=== PATIENT | female | born 1970 | race African-American/Black ===

== ENCOUNTER 2016-11-17 11:59 | Inpatient (IN) ==
[2016-11-17] MEDS ORDERED: DUONEB (A & A) INH ONE (12:23)
--- NOTE | 2016-11-17 12:32 | PROVIDER DOCUMENTATION ---
HPI-Respiratory General - General Chief Complaint: Shortness of Breath Stated Complaint: sob Time Seen by Provider: 11/17/16 12:17 Source: patient Allergies/Adverse Reactions: Patient Allergies Allergy/AdvReac Type Severity Reaction Status Date / Time amoxicillin [Amoxicillin] Allergy Severe RASH Verified 11/17/16 12:10 Home Medications: Home Medication List Medication Instructions Recorded Confirmed Last Taken Type Amlodipine [Norvasc] 10 mg PO DAILY 08/18/15 11/17/16 11/17/16 History Furosemide [Lasix] 40 mg PO DAILY 08/18/15 11/17/16 11/17/16 History Albuterol Sulfate [Proventil Hfa] 6.7 gm IH DIRECTED 11/03/15 11/17/16 History Potassium Chloride 10 meq PO BID 03/05/16 11/17/16 11/17/16 History Metformin [Glucophage] 1 tab PO DAILY 10/20/16 11/17/16 11/16/16 History - History of Present Illness-Resp Nature of Presenting Problem: SOB and Wheezing for 3-4 days. Occ prod cough. No fever, no CP, no palpitations. No N/V. Has bee using albuterol @ home. 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 denies: chest pain /soreness, heart racing Similar Symptoms Previously?: Yes Recently seen or treated by another doctor?: No Review of Systems - Adult - REVIEW OF SYSTEMS - ADULT Constitutional: reports: no symptoms reported Eyes: reports: no symptoms reported Ears, Nose, Mouth & Throat: reports: no symptoms reported Cardiovascular: reports: no symptoms reported Respiratory: reports: see HPI Gastrointestinal: reports: see HPI Genitourinary: reports: no symptoms reported Musculoskeletal: reports: no symptoms reported Integumentary: reports: no symptoms reported Neurological: reports: no symptoms reported Psychiatric: reports: no symptoms reported Endocrine: reports: no symptoms reported Hematologic/Lymphatic: reports: no symptoms reported Allergic/Immunologic: reports: no symptoms reported Past History - Adult - PAST MEDICAL HISTORY-ADULT Review of Records: reports: Medications Reviewed Major Childhood Illnesses: reports: denies history Cardiovascular: reports: CHF, HTN, hyperlipidemia Respiratory: reports: asthma, sleep apnea Gastrointestinal: reports: denies history Obstetrical/Gynecological: reports: denies history Genitourinary: reports: denies history Musculoskeletal: reports: chronic pain Neurological: reports: denies history Psychiatric: reports: anxiety Endocrine/Immune: reports: denies history Other Conditions: reports: denies history - PRIOR SURGERIES/PROCEDURES Surgical/Procedure History: reports: none - IMMUNIZATION STATUS Childhood Immunizations: See Nurse Assessment Flu Vaccine: See Nurse Assessment - FAMILY HISTORY Family History: reviewed, not pertinent - SOCIAL HISTORY Smoking: denies Physical Exam-General - PHYSICAL EXAM-ADULT Initial Vital Signs Reviewed: Yes - CONSTITUTIONAL General Appearance: appears well, alert, no apparent distress - EYES Eyes: PERRL/EOMI, pink conjunctivae - HEAD, EARS, NOSE, MOUTH & THROAT HENMT: normocephalic/atraumatic, moist mucous membranes, normal ENT inspection, pharynx normal - NECK Neck: full range of motion, supple - RESPIRATORY Respiratory: lungs clear, decreased breath sounds, accessory muscle use - CARDIOVASCULAR Cardiovascular: regular rate, rhythm, no gallop, other (1+ pretibial edema- pt says is no worse than usual) - GASTROINTESTINAL (ABDOMEN) Abdominal Exam: non tender, soft - MUSCULOSKELETAL Back Exam: no CVA tenderness, no vertebral tenderness Extremity: normal range of motion, non-tender - SKIN Integumentary: normal color, normal turgor, warm/dry - NEUROLOGIC Neurologic: cna II-XII nml as tested, grossly normal, no motor/sensory deficits - PSYCHIATRIC Psych/Mental Status: normal mood/affect, normal thought content, normal thought process, oriented x 3 Progress - PLAN OF CARE/RESULTS Progress/Plan/Lab Results: Vital Signs - 8 hr 11/17/16 12:02 11/17/16 12:05 11/17/16 12:51 Temperature 98.4 F Pulse Rate 114 H 102 H 106 H Respiratory Rate 25 H 22 22 Blood Pressure 141/81 O2 Sat by Pulse Oximetry 76 L 93 L 95 Laboratory Results - last 24 hr 11/17/16 11/17/16 11/17/16 12:12 12:12 12:12 WBC 3.72 L RBC 5.01 Hgb 12.9 Hct 43.6 MCV 87.0 MCH 25.7 L MCHC 29.6 L RDW Std Deviation 17.5 H Plt Count 253 MPV 11.2 H Immature Gran % (Auto) 0.0 Neut % (Auto) 63.1 Lymph % (Auto) 19.1 L [place] % (Auto) 16.7 H Eos % (Auto) 0.8 Baso % (Auto) 0.3 Immature Gran # (Auto) 0.00 Neut # (Auto) 2.35 Lymph # (Auto) 0.71 L [place] # (Auto) 0.62 H Eos # (Auto) 0.03 Baso # (Auto) 0.01 D-Dimer Specimen Type Sample Site pH pCO2 pO2 HCO3 Base Excess Oxyhemoglobin ABG O2 Sat (Calculated) ABG O2 Saturation ABG Carboxyhemoglobin ABG Methemoglobin Erik Test A-a O2 Difference Total Hemoglobin Lactate Blood Gas Modality FiO2 % Sodium 138 Potassium 4.6 Chloride 97 L Carbon Dioxide 31 Anion Gap 10 BUN 12 Creatinine 0.7 Estimated GFR/1.73 m2 > 60 BUN/Creatinine Ratio 17 Glucose 91 Calculated Osmolality 275 Calcium 8.7 L Total Bilirubin 0.48 AST 17 ALT 26 Alkaline Phosphatase 120 H Fkv-A-Amvihglkoro Pept 226 H Total Protein 8.1 Albumin 3.8 Globulin 4.3 Albumin/Globulin Ratio 0.9 Plasma Lactate Serum , Qual Urine Source 11/17/16 11/17/16 11/17/16 12:12 12:12 12:15 WBC RBC Hgb Hct MCV MCH MCHC RDW Std Deviation Plt Count MPV Immature Gran % (Auto) Neut % (Auto) Lymph % (Auto) [place] % (Auto) Eos % (Auto) Baso % (Auto) Immature Gran # (Auto) Neut # (Auto) Lymph # (Auto) [place] # (Auto) Eos # (Auto) Baso # (Auto) D-Dimer 0.98 H Specimen Type Sample Site pH pCO2 pO2 HCO3 Base Excess Oxyhemoglobin ABG O2 Sat (Calculated) ABG O2 Saturation ABG Carboxyhemoglobin ABG Methemoglobin Erik Test A-a O2 Difference Total Hemoglobin Lactate Blood Gas Modality FiO2 % Sodium Potassium Chloride Carbon Dioxide Anion Gap BUN Creatinine Estimated GFR/1.73 m2 BUN/Creatinine Ratio Glucose Calculated Osmolality Calcium Total Bilirubin AST ALT Alkaline Phosphatase Tbv-B-Qmewkugzylj Pept Total Protein Albumin Globulin Albumin/Globulin Ratio Plasma Lactate 1.6 Serum , Qual NEGATIVE Urine Source 11/17/16 11/17/16 15:20 15:47 WBC RBC Hgb Hct MCV MCH MCHC RDW Std Deviation Plt Count MPV Immature Gran % (Auto) Neut % (Auto) Lymph % (Auto) [place] % (Auto) Eos % (Auto) Baso % (Auto) Immature Gran # (Auto) Neut # (Auto) Lymph # (Auto) [place] # (Auto) Eos # (Auto) Baso # (Auto) D-Dimer Specimen Type ARTERIAL Sample Site R RADIAL pH 7.39 pCO2 66 H* pO2 66 HCO3 34.3 H Base Excess 12.2 H Oxyhemoglobin 91.9 L ABG O2 Sat (Calculated) 16.9 ABG O2 Saturation 93.9 L ABG Carboxyhemoglobin 1.70 ABG Methemoglobin 0.5 Erik Test YES A-a O2 Difference 108.0 Total Hemoglobin 13.1 Lactate 0.60 Blood Gas Modality CANNULA FiO2 % 36.0 Sodium Potassium Chloride Carbon Dioxide Anion Gap BUN Creatinine Estimated GFR/1.73 m2 BUN/Creatinine Ratio Glucose Calculated Osmolality Calcium Total Bilirubin AST ALT Alkaline Phosphatase Qqg-V-Uqcquvkpgnj Pept Total Protein Albumin Globulin Albumin/Globulin Ratio Plasma Lactate Serum , Qual Urine Source CLEAN CATCH Orders Category Date Time Status CHEST-2 VIEWS [RAD] Stat Exams 11/17/16 12:24 Completed ABG [RESP] Routine Lab 11/17/16 15:20 Completed CBC WITH DIFF [HEME] Stat Lab 11/17/16 12:12 Completed COMPREHENSIVE METABOLIC PANEL [CHEM] Stat Lab 11/17/16 12:12 Completed D-DIMER [CHEM] Stat Lab 11/17/16 12:12 Completed LACTATE, PLASMA [CHEM] Stat Lab 11/17/16 12:15 Completed TEST-SERUM [PREG] Stat Lab 11/17/16 12:12 Completed PRO B-NATRIURETIC PEPTIDE Stat Lab 11/17/16 12:12 Completed URINALYSIS W/POSS RFLX CULT [URINALYSIS] Stat Lab 11/17/16 15:47 Results Albuterol 2.5MG/Ipratrop 0.5MG [Duoneb (A & A)] Med 11/17/16 12:23 Discontinued 3 ml INH NOW ONE Methylprednisolone Sod Succ [Solu-Medrol] Med 11/17/16 14:58 Discontinued 125 mg IV NOW ONE Aerosol Treatments Routine Oth 11/17/16 12:23 Completed Aerosol Treatments Stat Oth 11/17/16 12:23 Completed EKG [EKG] Stat Ther 11/17/16 12:24 Ordered Transfer/Admit Order [TRANSFER] Routine Transfer 11/17/16 15:58 Ordered Result Diagrams: 11/17/16 12:12 11/17/16 12:12 - REASSESSMENT Reassessment #1 Time Reassessed: 14:49 (feels some better after neb. BS still decreased. Says feels like is still wheezing) Status: improving - EKG 1 Time of EKG reading by physician:: 12:08 EKG Read and Signed by:: Zen Hearn EKG Interpretation (*Must complete 3 of following elements*): Abnormal Rate: 101 Rhythm: sinus tach [place]: normal QRS: poor R wave progression - XRAY 1 XRAY Study: Chest (cardiomegaly with central vasc prominence, suspected infilt R base) - CONSULTS/PCP/HOSPITALIST Notification #1 *Consult/PCP/Hospitalist*: [place] Time Discussed: 14:57 Consult Disposition: Admit Departure - Departure Time of Disposition Decision: 14:57 DIAGNOSIS: Asthma exacerbation CHF (congestive heart failure) Qualifiers: Congestive heart failure type: unspecified congestive heart failure type Congestive heart failure chronicity: acute Qualified Code(s): I50.9 - Heart failure, unspecified Disposition: ADMITTED INPATIENT 09 Certified Medical Emergency: Emergent Condition: Stable Referrals and Follow-Ups: Desmond Mcqueen [Primary Care Provider] - - Critical Care Note This patient required my direct & personal management of CC.: No
[2016-11-17 12:34] LABS: MANUAL DIFF NEEDED? NO
[2016-11-17 12:36] LABS: BASO% 0.3 % (0.0-0.8); EOS# 0.03 X1000 (0.0-0.7); EOS% 0.8 % (0.0-10.0); HEMATOCRIT 43.6 % (37.0-47.0); HEMOGLOBIN 12.9 g/dL (12.0-16.0); LYMPH# 0.71 X1000 (1.2-3.4); LYMPH% 19.1 % (20.5-51.1); MCH 25.7 PG (27-31); MCHC 29.6 g/dL (33-37); MONO# 0.62 X1000 (0.11-0.59); MONO% 16.7 % (1.7-9.3); MPV 11.2 FL (7.4-10.4); NEUT% 63.1 % (42.2-75.2); PLT 253 X1000 (130-400); RBC 5.01 XMIL (4.2-5.4)
[2016-11-17 12:57] LABS: AGAP 10; ALBUMIN 3.8 g/dL (3.5-5.0); ALKALINE PHOSPHATASE 120 U/L (32-104); BUN 12 mg/dL (8-22); CALCIUM 8.7 mg/dL (8.8-10.2); CHLORIDE 97 mmol/L (98-107); COSMO 275; GOT 17 U/L (10-30); GPT 26 U/L (10-36); POTASSIUM 4.6 mmol/L (3.5-5.1); SODIUM 138 mmol/L (136-145); TCO2 31 mmol/L (25-35); TOTAL BILIRUBIN 0.48 mg/dL (0.20-1.00); TOTAL PROTEIN 8.1 g/dL (6.3-8.3)
--- NOTE | 2016-11-17 13:56 | Diag Imaging Result Doc PS360 ---
EXAM: CHEST-2 VIEWS HISTORY: SOB TECHNIQUE: COMPARISON: 04/13/2016 FINDINGS: The lungs are well expanded. The heart is mildly enlarged. The central vascular prominence. No consolidation. The heart infiltrates in the right base. No pleural effusions. IMPRESSION: 1.Cardiomegaly with central vascular prominence 2.Suspected infiltrate in the right base. Follow-up films recommended. Electronically signed by Curtis Garvey 11/17/2016 1:54 PM
[2016-11-17] MEDS ORDERED: SOLU-MEDROL IV ONE (14:58)
[2016-11-17 15:33] LABS: ALLEN TEST YES; BE 12.2 mmoll (-3.0-3.0); BLOOD TYPE ARTERIAL; DRAW SITE R RADIAL; METHB 0.5 % (0.0-1.5); O2(CT) 16.9 mL/dL (15.0-23.0); PO2(98.6) 66 mmHg (60-100); SAMPLE BLOOD; SAO2 93.9 % (95.0-100.0); THB 13.1 g/dL (11.5-17.4); pH(98.6) 7.39 (7.35-7.45)
[2016-11-17 15:37] LABS: MODALITY CANNULA; PCO2(98.6) 66 mmHg (35-45)
[2016-11-17 15:58] LABS: URINE CULTURE NEEDED? NO; URINE MICRO REVIEW NEEDED? NO; URINE SOURCE CLEAN CATCH
[2016-11-17 16:19] LABS: BILIRUBIN URINE NEGATIVE (NEGATIVE); BLOOD URINE NEGATIVE (NEGATIVE); COLOR STRAW; GLUCOSE URINE NEGATIVE (NEGATIVE); LEUKOCYTES URINE NEGATIVE (NEGATIVE); NITRITE URINE NEGATIVE (NEGATIVE); PROTEIN URINE NEGATIVE (NEGATIVE); SP GRAVITY URINE 1.008; TURBIDITY URINE CLEAR (CLEAR); UROBILINOGEN URINE NORMAL (NORMAL)
[2016-11-17 16:20] LABS: UR EPITHELIAL CELLS <10 /HPF (<10); URINE BACTERIA NEGATIVE /HPF; URINE RBC <10 /HPF (<10); URINE WBC <10 /HPF (<10)
--- NOTE | 2016-11-17 17:06 | HISTORY AND PHYSICAL ---
PRIMARY CARE PROVIDER: Dr. Desmond Mcqueen. CHIEF COMPLAINT: Wheezing. HISTORY OF PRESENT ILLNESS: Ms. Sherwood is a 46-year-old morbidly obese female with a history of asthma, COPD, hypertension, chronic systolic heart failure, obstructive sleep apnea who apparently states that when the weather gets worse or at night her wheezing gets worse. She has been having some shortness of breath with increased wheezing over the last 2 days. She states that her cough is nonproductive, but when she takes a breathing treatment at home she can cough up light yellow to white phlegm. She denies any type of fever and she states that she has been wearing her home O2 which is 3 L nasal cannula as needed and every night. She states that it got worse through the night and she decided to come in and seek medical advice. Her chest x-ray showed that she had a right lower lobe infiltrate. Her CO2 with her ABGs were 66, which appears to be around her baseline. Her PO2 is 66. Looking over the last year, her CO2 has ranged anywhere from as low at 59 to as high as 94. She states that she is supposed to wear CPAP at night, but has been unable to obtain equipment for this. We will go ahead and admit, start her on antibiotic treatment nebulizers. PAST MEDICAL HISTORY: 1. GERD. 2. Hiatal hernia. 3. Asthma, now with COPD, wearing 3 L nasal cannula p.r.n. oxygen at home. 4. Hypertension. 5. Chronic systolic congestive heart failure. 6. Hyperlipidemia. 7. Obstructive sleep apnea, but only wears night nasal cannula secondary to unable to obtain her CPAP machine. 8. Anxiety. 9. Diabetes type 2. 10. Morbidly obese. SURGICAL HISTORY: None. FAMILY HISTORY: Mother has heart disease and father has diabetes type 2. SOCIAL HISTORY: Denies tobacco, alcohol or illicit drug use. She states that she does on occasion drink alcohol, but it is very rare. She lives at home with her brother and cousin and has no issues with ambulation. ALLERGIES: Amoxicillin. HOME MEDICATIONS: Albuterol sulfate 6.7, inhaled as needed. Norvasc 10 mg p.o. daily. Lasix 40 mg p.o. daily. Glucophage 500 mg p.o. daily. Potassium chloride 10 mEq p.o. twice daily. REVIEW OF SYSTEMS: Fourteen point review of systems were complete and all were negative except for those mentioned above HPI. PHYSICAL EXAMINATION: VITAL SIGNS: Temperature is 98.4 degrees, heart rate 106, respiratory 22, blood pressure 141/81, O2 saturation 95% on 3 L nasal cannula on room air. When tested she was 83-84% . With her nasal cannula she was 92-96%. She is 5 feet 3 inches tall, 480 pounds with a BMI of 85. GENERAL: Ms. Jane Sherwood is a 46-year-old female. She is in no acute distress. She is able answer all questions appropriately. HEENT: Atraumatic, normocephalic. Pupils equal, round, reactive to light. Extraocular movements are intact. NECK: Unable to assess for JVD given body habitus. Negative for carotid bruits. CARDIOVASCULAR: S1, S2. Tachycardic rate and rhythm. No rubs, gallops, murmurs. PULMONARY: Mild expiratory wheezes noted anteriorly and posteriorly. No accessory muscle use or work of breathing noted at this time. Currently on 3 L nasal cannula. GI: Soft, nontender, morbidly obese, positive bowel sounds x4. EXTREMITIES: +1 pitting edema lower extremities, +2 dorsalis and radial pulses. NEUROLOGIC: Alert and oriented x4. Moves all extremities equally. LABORATORY DATA: White blood cells 3000, hemoglobin 12, hematocrit 43, platelet count 253,000. D- dimer 0.98. Arterial blood gases: PH 7.39, pCO2 66, PO2 66, bicarb 34, saturation 91, lactate 0.6 and this is on 3 L nasal cannula. Sodium is 138, potassium 4.6, BUN 12, creatinine 0.7, glucose 91, calcium 8.7, total bilirubin 0.48, AST 17, ALT 26, proBNP 226. Albumin 3.8, serum lactate 1.6. negative. Urinalysis negative. IMAGING: Chest x-ray: Cardiomegaly with central vascular prominence and suspected infiltrate in the right base of the lung. ASSESSMENT AND PLAN: 1. Chronic obstructive pulmonary disease, asthma exacerbation. Mild. We will do intravenous steroids, inhalers and pulmonary toilet. 2. Community-acquired pneumonia of the right lower lobe. We will do Levaquin for now. 3. Gastroesophageal reflux disease. Continue with proton pump inhibitor. 4. Hiatal hernia noted. 5. Hypertension. Continue home medications. 6. Chronic systolic congestive heart failure. No acute exacerbation at this time. Continue with home Lasix. 7. Obstructive sleep apnea. Does not wear CPAP at home secondary to unable to obtain a CPAP machine. 8. Diabetes type 2. Sliding scale insulin. Pattern blood glucoses. 9. Deep venous thrombosis prophylaxis. Lovenox. 10. Gastrointestinal prophylaxis. Proton pump inhibitor. Dictated by FREDY Guy for Gordo Georges MD cc: FREDY Guy MD Joel Alonzo Powell, Jr, MD I have seen and examined the patient and agrees with the above. Patient with OHS and severe obstructive sleep apnea Patient is has not been approved the CPAP. We will discuss this with her Package Wrapper and the case management. BEATRIZ
[2016-11-17] MEDS ORDERED: TYLENOL PO PRN (17:53)
[2016-11-17] MEDS: HUMULIN R SUBQ SCH ×2 (19:04→21:53)
[2016-11-17] MEDS: XOPENEX NEB INH SCH ×2 (19:15→23:40)
[2016-11-17] MEDS: PULMICORT INH SCH (19:15)
[2016-11-17] MEDS: ATROVENT NEB INH SCH ×2 (19:15→23:40)
[2016-11-17] MEDS: MUCOMYST 20% INH SCH (19:15)
[2016-11-17] MEDS: KLOR-CON PO SCH (21:53)
[2016-11-17] MEDS: LEVAQUIN 750 MG in NS 150 ML IV SCH (21:53)
[2016-11-17] MEDS: SOLU-MEDROL IV SCH (21:53)
[2016-11-18] MEDS: SOLU-MEDROL IV SCH ×4 (03:21→20:36)
[2016-11-18] MEDS: XOPENEX NEB INH SCH ×6 (03:35→23:10)
[2016-11-18] MEDS: ATROVENT NEB INH SCH ×6 (03:35→23:10)
--- NOTE | 2016-11-18 05:37 | EKG Report ---
Test Performed on : 11/17/2016 12:06:09 PM Test Reason : Blood Pressure : / mmHG Vent. Rate : 101 BPM Atrial Rate : 101 BPM P-R Int : 146 ms QRS Dur : 080 ms QT Int : 350 ms P-R-T Axes : 057 071 054 degrees QTc Int : 453 ms Sinus tachycardia. Cannot rule out Anterior infarct , age undetermined Abnormal ECG When compared with ECG of 11-APR-2016 12:28, No significant change was found Unconfirmed Result
[2016-11-18] MEDS: HUMULIN R SUBQ SCH ×4 (06:19→20:36)
[2016-11-18 06:50] LABS: BASO% 0.3 % (0.0-0.8); HEMATOCRIT 44.7 % (37.0-47.0); HEMOGLOBIN 13.4 g/dL (12.0-16.0); LYMPH# 0.36 X1000 (1.2-3.4); LYMPH% 9.6 % (20.5-51.1); MANUAL DIFF NEEDED? YES; MCH 25.7 PG (27-31); MCV 85.6 FL (81-99); MONO# 0.05 X1000 (0.11-0.59); MONO% 1.3 % (1.7-9.3); MPV 11.1 FL (7.4-10.4); NEUT% 88.8 % (42.2-75.2); PLT 276 X1000 (130-400); RBC 5.22 XMIL (4.2-5.4)
[2016-11-18 07:17] LABS: AGAP 10; ALBUMIN 3.7 g/dL (3.5-5.0); ALKALINE PHOSPHATASE 120 U/L (32-104); BUN 15 mg/dL (8-22); CALCIUM 9.2 mg/dL (8.8-10.2); CHLORIDE 97 mmol/L (98-107); COSMO 282; GOT 15 U/L (10-30); GPT 23 U/L (10-36); POTASSIUM 5.1 mmol/L (3.5-5.1); SODIUM 139 mmol/L (136-145); TCO2 32 mmol/L (25-35); TOTAL BILIRUBIN 0.35 mg/dL (0.20-1.00); TOTAL PROTEIN 8.2 g/dL (6.3-8.3)
[2016-11-18 07:22] LABS: LYMPHS 12 % (21-51); MONO 5 % (1-9)
[2016-11-18] MEDS: MUCOMYST 20% INH SCH ×2 (08:07→19:15)
[2016-11-18] MEDS: PULMICORT INH SCH ×2 (08:08→19:15)
[2016-11-18] MEDS: KLOR-CON PO SCH ×2 (09:33→20:36)
[2016-11-18] MEDS: NORVASC PO SCH (09:33)
[2016-11-18] MEDS: LASIX PO SCH (09:33)
[2016-11-18] MEDS: LOVENOX SUBQ SCH (09:34)
[2016-11-18] MEDS: MUCINEX PO SCH ×2 (11:27→20:36)
--- NOTE | 2016-11-18 16:36 | PROGRESS NOTE ---
DATE: 11/18/2016 SUBJECTIVE: Today Ms. Sherwood refers to be doing a lot better. Continues to have some residual cough, but no expectoration. OBJECTIVE: Vital signs: Blood pressure is 137/77, pulse of 94, respirations 20 , temperature is 98.7 degrees. General: Ms. Sherwood is a 46-year-old female, morbidly obese, BMI is over 85. She is in bed and did not seem to be in any distress. HEENT: Mucosa is pink and moist. Anicteric. Acyanotic. Neck: Supple. Chest: Air entry is bilaterally reduced. I did not appreciate any crepitations. There is some faint expiratory wheezing. Cardiovascular: Regular rate and rhythm. Abdomen: Soft, distended, but nontender. Extremities : No pedal edema. Patient does have excess subcutaneous tissue. LABORATORY DATA: WBC is 3.75, hemoglobin is 13.4, platelet count of 275,000. Chemistries reviewed. Completely unremarkable except for bicarb of 332. IMAGING: A chest x-ray which was done on presentation showed cardiomegaly with central vascular prominence. Suspected infiltrate in the right base. CURRENT MEDICATIONS: 1. Amlodipine 10 mg daily. 2. Budesonide inhaler. 3. Lovenox. 4. Lasix 40 mg daily. 5. Guaifenesin. 6. Levofloxacin 750. 7. Prednisone. 8. Potassium chloride ASSESSMENT: 1. Acute on chronic hypercarbic respiratory failure. 2. Obstructive sleep apnea. 3. Obesity hypoventilation syndrome. 4. Congestive heart failure, likely diastolic dysfunction. 5. Severe morbid obesity with body mass index of 85. PLAN: 1. In general, I think Ms. Sherwood is gradually getting better. We spoke extensively about her at [facility] and the fact that she keeps coming in and out and the ability for her to get a CPAP for her sleep apnea. The social welfare research worker and case management are looking into that. 2. I was also able to talk to her belt molder, Dr. Purvis, and he will also be looking into that issue of her CPAP. 3. Clinical standpoint, I think by tomorrow if her coughing is a whole lot better, we might be able to discharge her. cc: Gordo Georges MD [facility]
[2016-11-18] MEDS: LEVAQUIN 750 MG in NS 150 ML IV SCH (20:37)
[2016-11-19] MEDS: SOLU-MEDROL IV SCH ×2 (03:08→09:58)
[2016-11-19] MEDS: ATROVENT NEB INH SCH ×2 (03:25→08:05)
[2016-11-19] MEDS: XOPENEX NEB INH SCH ×2 (03:25→08:05)
[2016-11-19] MEDS: HUMULIN R SUBQ SCH ×3 (06:24→16:12)
[2016-11-19] MEDS: PULMICORT INH SCH (08:05)
[2016-11-19] MEDS: MUCOMYST 20% INH SCH (08:05)
--- NOTE | 2016-11-19 08:55 | CONSULTATION ---
DATE OF CONSULTATION: 11/19/2016 REFERRING PHYSICIAN: Dr. Georges. CHIEF COMPLAINT: Shortness of breath. HISTORY OF PRESENT ILLNESS: This is a 46-year-old female with a past medical history of GERD, asthma, hypertension, CHF, hyperlipidemia, STONEY, anxiety, diabetes, and morbid obesity, who presented to the hospital with complaints of shortness of breath and wheezing. She was admitted to the floor for closer evaluation. She does appear to be moderately better at this time. REVIEW OF SYSTEMS: A 10-point review of systems was conducted, pertinent as noted in the HPI, otherwise noncontributory. PAST MEDICAL HISTORY: As mentioned in the HPI, otherwise noncontributory. PAST SURGICAL HISTORY: Denies. FAMILY HISTORY: Notable for heart disease and diabetes. SOCIAL HISTORY: The patient denies the use of tobacco or illicit drugs. Has an occasional drink of alcohol. Lives at home with family. ALLERGIES: Amoxicillin. ACTIVE MEDICATIONS: Tylenol, Mucomyst, Norvasc, Pulmicort, Lovenox, Lasix, Mucinex, Humulin R, Atrovent, Xopenex, Solu-Medrol, Levaquin, Klor-Con. PHYSICAL EXAMINATION: Vital Signs: Temperature 97.5 degrees, heart rate 104, respiratory rate 16, blood pressure 144/91, oxygen saturation 94%. General: Awake, alert, sitting up in bed. No acute distress noted. HEENT: Normocephalic, atraumatic. PERRL. Cardiovascular: S1, S2 present. Chest: Reduced entry with some mild expiratory wheezes. Abdomen: Protuberant abdomen. Bowel sounds present in all quadrants. Extremities: There is +1 pedal edema. Neurologic: Alert and oriented x4. No focal deficits. IMAGING: Chest x-ray performed on 11/17/2016 shows cardiomegaly with central vascular prominence and suspected infiltrate in the right base. ASSESSMENT AND PLAN: This is a 46-year-old female with past medical history as mentioned in the history of present illness, who was admitted for evaluation of her chronic obstructive pulmonary disease exacerbation secondary to asthma. She did receive inhaled bronchodilators, intravenous steroids, broad-spectrum antibiotics for suspected community-acquired pneumonia. Will follow up outpatient for continuous positive airway pressure setup. Diabetes is controlled with pattern fingersticks and sliding scale insulin, as well as deep venous thrombosis and gastrointestinal prophylaxis. Further recommendations pending diagnostic studies. STONEY and was unable to obtain CPAP machine outpatient due to insurance restrictions. We attempted patient-assistantship programs. Thank you for the courtesy of this consult. cc: Elisha Purvis MD MTDNancy
[2016-11-19] MEDS: LOVENOX SUBQ SCH (09:58)
[2016-11-19] MEDS: LASIX PO SCH (09:58)
[2016-11-19] MEDS: NORVASC PO SCH (09:58)
[2016-11-19] MEDS: KLOR-CON PO SCH (09:58)
[2016-11-19] MEDS: MUCINEX PO SCH (09:58)
[2016-11-19 14:19] VITALS: BP 145/72
--- NOTE | 2016-11-19 15:23 | DISCHARGE SUMMARY ---
ADMISSION DATE: 11/17/2016 DISCHARGE DATE: 11/19/2016 CONSULTATIONS: Dr. Purvis with Pulmonology. PERTINENT PROCEDURE: Chest x-ray showed cardiomegaly with central vascular prominence, suspected infiltrate in the right base. DISCHARGE DIAGNOSES: 1. Acute on chronic hypercapnic respiratory failure, resolved. 2. Obstructive sleep apnea. Aware. 3. Obesity with hypoventilation syndrome. Followed by Dr. Purvis. They will also be looking into her issues with her CPAP. 4. Congestive heart failure likely diastolic dysfunction. 5. Severe morbid obesity with a body mass index of 85. HOSPITAL COURSE: Briefly Ms. Sherwood is a 46-year-old female who is morbidly obese. She carries a history of asthma, COPD, hypertension, chronic systolic heart failure, obstructive sleep apnea who has multiple admission secondary to her respiratory issues and not being able to afford a CPAP machine and/or keeping her sleep study appointments. The patient came in with shortness of breath, increased wheezing for 2 days. She has been wearing her home O2 which is 3 L nasal cannula as needed at night. Her chest x-ray showed a right lower lobe infiltrate. CO2 on her ABGs was 66 which appeared to be around her baseline. Again, the patient is supposed to wear CPAP at night but she has not been able to obtain equipment for this. The patient was started on antibiotic treatments as well as nebulizers and aggressive pulmonary toilet with a consult for Pulmonology. Clinically Ms. Sherwood has gotten better. We did speak extensively to her about the fact that she keep coming in and out and the ability of her to get her CPAP for her sleep apnea. We also had oncology social work and case management looking into the issue with her CPAP machine as well as Dr. Purvis. They are going to follow her outpatient for CPAP set up. Clinically, the patient has improved. She is being discharged home today with p.o. antibiotics and continued on her home inhalers. VITAL SIGNS: Temperature is 97.5 degrees, heart rate 94, respirations 20, blood pressure 144/91, O2 is 98% on 3 L nasal cannula. DISCHARGE DIET: Healthy heart. DISCHARGE MEDICATIONS: 1. Proventil 6.7 g inhaled as directed. 2. Norvasc 10 mg p.o. daily. 3. Lasix 40 mg p.o. daily. 4. Mucinex 1200 mg p.o. q.12 hours. 5. Levaquin 750 mg p.o. daily for 7 days. 6. Glucophage 500 mg p.o. daily. 7. Potassium chloride 10 mEq p.o. b.i.d. 8. Prednisone 20 mg p.o. daily for the next 5 days. FOLLOW UP: Ms. Sherwood is being discharged home with self care. Continue on her home O2. She will need to follow up with Dr. Purvis as instructed as well as her primary care physician, Dr. Zhang Mcqueen. Patient can return to the ED for any worsening of symptoms. Discharge time 30 minutes. Dictated by FREDY Cedillo for Gordo Georges MD cc: Desmond Mcqueen Jr, MD Raphael K. Quansah, MD
[2016-11-20] MEDS ORDERED: PREDNISONE PO SCH (09:00)
[2016-11-20] MEDS ORDERED: LEVAQUIN PO SCH (09:00)
== END 2016-11-19 18:19 | disposition home or self-care (01) ==
LOC: ED 11:59 → 3N 17:01
PROVIDERS: ATTEND Internal Medicine

== ENCOUNTER 2018-08-29 18:42 | Inpatient (IN) ==
[2018-08-29] MEDS ORDERED: DUONEB (A & A) INH ONE (19:21)
[2018-08-29 19:48] LABS: EOS# 0.02 X1000 (0.0-0.7); EOS% 0.3 % (0.0-10.0); HEMATOCRIT 41.1 % (37.0-47.0); HEMOGLOBIN 11.9 g/dL (12.0-16.0); IMM GRAN# 0.02 X1000 (0.0-0.04); IMM GRAN% 0.3 % (0.0-0.5); LYMPH# 0.91 X1000 (1.2-3.4); LYMPH% 13.6 % (20.5-51.1); MCH 27.4 PG (27-31); MCV 94.5 FL (81-99); MPV 11.8 FL (7.4-10.4); NEUT# 5.14 X1000 (1.4-6.5); NEUT% 76.8 % (42.2-75.2); PLT 221 X1000 (130-400); RBC 4.35 XMIL (4.2-5.4); RDW 15.4 % (11.5-14.5); WBC 6.69 X1000 (4.8-10.8)
--- NOTE | 2018-08-29 20:06 | Diag Imaging Result Doc PS360 ---
CHEST-PORTABLE - 08/29/2018 INDICATION: shortness of breath COMPARISON: 08/12/2018 FINDINGS: Stable cardiomegaly and pulmonary vascular congestion. No definite infiltrates or edema. IMPRESSION: Cardiomegaly and pulmonary vascular congestion. Electronically signed by Desmond De La Torre 08/29/2018 8:03 PM
[2018-08-29 20:22] LABS: URINE SOURCE CLEAN CATCH
[2018-08-29 20:26] LABS: BILIRUBIN URINE NEGATIVE (NEGATIVE); BLOOD URINE NEGATIVE (NEGATIVE); COLOR YELLOW; GLUCOSE URINE NEGATIVE (NEGATIVE); KETONE URINE NEGATIVE (NEGATIVE); LEUKOCYTES URINE NEGATIVE (NEGATIVE); NITRITE URINE NEGATIVE (NEGATIVE); PH URINE 5.5; PROTEIN URINE TRACE mg/dL (NEGATIVE); SP GRAVITY URINE 1.014; TURBIDITY URINE HAZY (CLEAR); UROBILINOGEN URINE NORMAL (NORMAL)
[2018-08-29 20:27] LABS: UR EPITHELIAL CELLS >10 /HPF (<10); URINE BACTERIA 1+ /HPF; URINE RBC <10 /HPF (<10); URINE WBC <10 /HPF (<10)
[2018-08-29 20:33] LABS: AGAP 8; ALB/GLOB RATIO 1.1; ALBUMIN 3.8 g/dL (3.5-5.0); ALKALINE PHOSPHATASE 86 U/L (32-104); BUN 13 mg/dL (8-22); CALCIUM 9.1 mg/dL (8.8-10.2); CHLORIDE 95 mmol/L (98-107); CK PROFILE 47 U/L (24-173); COSMO 282; CREATININE 0.7 mg/dL (0.5-0.9); ESTIMATED GFR > 60; GLUCOSE 70 mg/dL (70-104); GOT 10 U/L (10-30); GPT 7 U/L (10-36); POTASSIUM 4.1 mmol/L (3.5-5.1); SODIUM 142 mmol/L (136-145); TCO2 39 mmol/L (25-35); TOTAL BILIRUBIN 0.35 mg/dL (0.20-1.00); TOTAL PROTEIN 7.4 g/dL (6.3-8.3)
[2018-08-29 20:48] LABS: ALLEN TEST YES; BE 17.2 mmoll (-3.0-3.0); BLOOD TYPE ARTERIAL; HCO3-(ACT) 38.2 mmoll (20.0-26.0); METHB 0.4 % (0.0-1.5); O2(CT) 15.4 mL/dL (15.0-23.0); O2HB 90.3 % (95.0-99.0); PO2(98.6) 60 mmHg (60-100); SAMPLE BLOOD; SAO2 92.3 % (95.0-100.0); THB 12.1 g/dL (11.5-17.4); pH(98.6) 7.37 (7.35-7.45)
[2018-08-29 20:49] LABS: PCO2(98.6) 80 mmHg (35-45)
[2018-08-29] MEDS ORDERED: LASIX IV ONE (21:08)
[2018-08-29] MEDS ORDERED: TYLENOL PO PRN (21:43)
[2018-08-29] MEDS ORDERED: NORCO-7.5 PO PRN (21:43)
[2018-08-29] MEDS ORDERED: ZOFRAN IV PRN (21:43)
[2018-08-29 22:26] LABS: HEMOGLOBIN A1C 5.2 % (4.8-6.0)
[2018-08-29] MEDS: DUONEB (A & A) INH SCH (23:47)
[2018-08-30] MEDS: HEPARIN SUBQ SCH ×3 (01:15→18:26)
[2018-08-30] MEDS: DUONEB (A & A) INH SCH ×4 (03:25→21:41)
[2018-08-30] MEDS ORDERED: FLU VACCINE IM ONE (04:44)
[2018-08-30] MEDS ORDERED: PNEUMOVAX 23 IM ONE (04:44)
[2018-08-30] MEDS: HUMALOG SUBQ SCH ×4 (06:14→23:58)
[2018-08-30 06:26] LABS: EOS# 0.03 X1000 (0.0-0.7); EOS% 0.5 % (0.0-10.0); HEMOGLOBIN 11.8 g/dL (12.0-16.0); LYMPH# 0.94 X1000 (1.2-3.4); LYMPH% 15.9 % (20.5-51.1); MCH 27.9 PG (27-31); MCHC 29.5 g/dL (33-37); MCV 94.6 FL (81-99); MONO# 0.36 X1000 (0.11-0.59); MONO% 6.1 % (1.7-9.3); MPV 10.9 FL (7.4-10.4); NEUT# 4.59 X1000 (1.4-6.5); NEUT% 77.5 % (42.2-75.2); PLT 223 X1000 (130-400); RBC 4.23 XMIL (4.2-5.4); RDW 15.3 % (11.5-14.5); WBC 5.92 X1000 (4.8-10.8)
[2018-08-30 06:39] LABS: ESTIMATED GFR > 60
[2018-08-30 06:43] LABS: AGAP 6; BUN 10 mg/dL (8-22); CALCIUM 8.6 mg/dL (8.8-10.2); CHLORIDE 94 mmol/L (98-107); COSMO 281; CREATININE 0.6 mg/dL (0.5-0.9); GLUCOSE 104 mg/dL (70-104); POTASSIUM 4.1 mmol/L (3.5-5.1); SODIUM 141 mmol/L (136-145); TCO2 41 mmol/L (25-35)
[2018-08-30] MEDS ORDERED: NORCO-7.5 PO PRN (07:34)
--- NOTE | 2018-08-30 07:36 | EKG Report ---
Test Performed on : 08/29/2018 7:01:09 PM Test Reason : ED. NO EKG ORDER FOR MUSE Blood Pressure : / mmHG Vent. Rate : 104 BPM Atrial Rate : 104 BPM P-R Int : 136 ms QRS Dur : 090 ms QT Int : 346 ms P-R-T Axes : 056 080 060 degrees QTc Int : 454 ms Sinus tachycardia. Otherwise normal ECG When compared with ECG of 12-AUG-2018 18:33, (Unconfirmed) No significant change was found Unconfirmed Result
--- NOTE | 2018-08-30 09:35 | PROGRESS NOTE ---
DATE: 08/30/2018 SUBJECTIVE: This morning, Ms. Sherwood refers to be doing a little better. According to her, the coughing and the shortness of breath are getting better. OBJECTIVE: Vital Signs: Blood pressure is 138/83, pulse is 89, respirations are 16, temperature is 98.3 degrees, patient was saturating 94% on a face mask. General Examination: Ms. Sherwood is a 48-year-old, morbidly obese, female with a BMI of 85.3. She is in bed. Did not seem to be in any cardiopulmonary distress. HEENT: Mucosa is pink and moist. Anicteric. Acyanotic. Neck: Supple. Respiratory System: Air entry was bilaterally reduced. There was a few distant and expiratory wheezing and some crackles posteriorly. Cardiovascular: Regular rate and rhythm. No murmurs. Abdomen: Soft, distended, but nontender. Extremities: No pedal edema. ARCHITECT MANAGER: The patient was awake, alert, and oriented. Follows commands. Laboratory Data: WBC is 5.92, hemoglobin is 11.8, platelet count of 223,000. Chemistry is also reviewed. Bicarb is 41. Rest of chemistry is completely normal. Blood gas revealed a pCO2 of 80. The patient's baseline seems to be about 69 to 59. Imaging Studies: A chest x-ray which was done on presentation shows cardiomegaly and pulmonary vascular congestion. The patient did have an echocardiogram in 2017 with an ejection fraction of 55%. ASSESSMENT: 1. Acute on chronic hypercarbic respiratory failure. The patient was synchronizing between BiPAP and nasal cannula. We will continue monitoring her arterial blood gases. 2. Acute hypoxemic respiratory failure, improved. 3. Morbid obesity with obesity hypoventilation syndrome. 4. Chronic respiratory acidosis with metabolic compensation noted. PLAN: In general, I think Ms. Sherwood is fairly stable now. I think her main issues are related with her morbid obesity which are compromising her ventilatory capacity. She probably needs to be on CPAP/BiPAP. Pulmonary medicine has been consulted and we are waiting for their further recommendations. cc: Gordo Georges MD
[2018-08-30] MEDS: LASIX IV SCH ×2 (10:01→20:33)
[2018-08-30 11:37] LABS: MODALITY VENTIMASK
--- NOTE | 2018-08-30 18:25 | CONSULTATION ---
DATE OF CONSULTATION: 08/30/2018 REQUESTING PROVIDER: FREDY Currie REASON FOR CONSULTATION: Respiratory failure, needs CPAP; STONEY. HISTORY OF PRESENT ILLNESS: This is a 48-year-old female with a medical history of obstructive sleep apnea with hypercapnia, morbid obesity with obesity- hypoventilation syndrome, COPD, congestive heart failure, hypertension, gastroesophageal reflux disease, diabetes, hyperlipidemia, hiatal hernia and anxiety. She has been seen in our office for obstructive sleep apnea since 2016. She presented to the ER last night with worsening shortness of breath. In the ER, her initial oxygen saturation was 60% on room air. She also had tachycardia and tachypnea. Lab revealed pCO2 of 80 and proBNP of 615. Chest x-ray revealed cardiomegaly and pulmonary vascular congestion. Breathing treatment and diuretics were given. She has been admitted to the medical floor for further evaluation and management. At the time of my examination, the patient is lying in bed comfortably and breathing through a Ventimask with FIO2 of 50%. She states she is feeling better. She still has ongoing exertional dyspnea and dry cough. She reports no chest pain or palpitation. PAST MEDICAL AND SURGICAL HISTORY: 1. Obstructive sleep apnea with hypercapnia, noncompliant. The patient states that she cannot afford a BiPAP machine. She does have a old CPAP from 2002, but she is afraid to use it because the humidifier is not working properly. Last BiPAP titration on 06/05/2018 revealed the optimal pressure of 20/16. 2. Morbid obesity with obesity-hypoventilation syndrome. Current BMI is 85.2. 3. COPD. 4. Congestive heart failure, diastolic. 5. Hypertension. 6. Gastroesophageal reflux disease. 7. Diabetes. 8. Hyperlipidemia. 9. Hiatal hernia. 10. Anxiety. SOCIAL HISTORY: She does not smoke. She used to chew tobacco but quit 10 years ago. She drinks alcohol occasionally. She lives with her family, and some family members smoke but not inside the house. FAMILY HISTORY: Positive for hypertension and diabetes. ALLERGIES: Amoxicillin. REVIEW OF SYSTEMS: A 10-point review of systems was conducted and the pertinence is listed within the HPI, otherwise noncontributory. PHYSICAL EXAMINATION: Vital signs: Temperature 98.3, blood pressure 138/83, pulse 89, respiratory rate 16, oxygen saturation 94% on a Ventimask with FIO2 of 50%. General: Morbidly obese, in no acute respiratory distress. HEENT: Atraumatic. Trachea midline. Mucosa pink and moist. Respiratory: Lung expansion equal bilaterally. Auscultation reveals diminished breath sounds bilaterally. Cardiovascular: Regular rate and rhythm without murmur. Gastrointestinal: Bowel sounds normoactive in all 4 quadrants. Soft, obese and nontender. Extremities: Pedal edema 1+. No cyanosis. No clubbing. Dorsalis pedis 2+ bilaterally. Neurologic: Alert and oriented x3. Speech fluent. Follows commands. LABORATORY DATA: White blood cell 5.92, hemoglobin 11.8, hematocrit 40.0, platelets 223,000. Sodium 141, potassium 4.1, chloride 94, carbon dioxide 41, BUN 10, creatinine 0.6 and glucose 104. ASSESSMENT: This is a 48-year-old female with a medical history of obstructive sleep apnea with hypercapnia; morbid obesity with obesity-hypoventilation syndrome; chronic obstructive pulmonary disease; congestive heart failure; hypertension; gastroesophageal reflux disease; diabetes; hyperlipidemia; hiatal hernia; and anxiety. She has been admitted to the medical floor since 08/29/2018 with [id number] hypoxemic hypocapnic respiratory failure, morbid obesity with obesity-hypoventilation syndrome and compensated respiratory acidosis. 1. [id number] hypoxemic hypocapnic respiratory failure. 2. Morbid obesity with obesity-hypoventilation syndrome. 3. Obstructive sleep apnea, noncompliant. PLAN: 1. BiPAP at bedtime and as needed. 2. Continue diuretics and bronchodilators. 3. Decrease narcotic dosage. 4. Follow up ABG. 5. Patient cannot afford a BiPAP machine at this time. We will ask family caseworker if they can help assist her in getting a BiPAP machine. Our clinic also has been working on that. 6. Recommend dietary counseling and weight management. 7. Continue GI and DVT prophylaxis. 8. Additional recommendations pending hospital course. Thank you for the courtesy of this consult. Dictated by FREDY Lake for Elisha Purvis MD cc: FREDY Lake MD [facility]
[2018-08-31] MEDS: HEPARIN SUBQ SCH ×3 (01:24→20:29)
[2018-08-31] MEDS: DUONEB (A & A) INH SCH ×4 (03:18→21:17)
[2018-08-31 03:50] LABS: ALLEN TEST YES; BE 17.4 mmoll (-3.0-3.0); BLOOD TYPE ARTERIAL; HCO3-(ACT) 38.5 mmoll (20.0-26.0); METHB 0.1 % (0.0-1.5); O2(CT) 17.1 mL/dL (15.0-23.0); O2HB 96.7 % (95.0-99.0); PO2(98.6) 127 mmHg (60-100); SAMPLE BLOOD; SAO2 97.8 % (95.0-100.0); THB 12.4 g/dL (11.5-17.4)
[2018-08-31 03:51] LABS: MODALITY BI PAP
[2018-08-31 03:55] LABS: PCO2(98.6) 74 mmHg (35-45)
[2018-08-31] MEDS: SYMBICORT 160/4.5 MICROGM INHALER INH SCH ×3 (06:00→21:17)
[2018-08-31 06:06] LABS: EOS# 0.07 X1000 (0.0-0.7); EOS% 1.6 % (0.0-10.0); HEMATOCRIT 40.8 % (37.0-47.0); LYMPH# 0.84 X1000 (1.2-3.4); LYMPH% 19.6 % (20.5-51.1); MCH 27.6 PG (27-31); MCHC 29.4 g/dL (33-37); MONO# 0.43 X1000 (0.11-0.59); MPV 11.3 FL (7.4-10.4); NEUT# 2.94 X1000 (1.4-6.5); NEUT% 68.8 % (42.2-75.2); PLT 241 X1000 (130-400); RBC 4.34 XMIL (4.2-5.4); RDW 15.4 % (11.5-14.5); WBC 4.28 X1000 (4.8-10.8)
[2018-08-31] MEDS: HUMALOG SUBQ SCH ×4 (06:12→23:25)
[2018-08-31 06:31] LABS: AGAP 9; ALB/GLOB RATIO 0.9; ALBUMIN 3.6 g/dL (3.5-5.0); ALKALINE PHOSPHATASE 84 U/L (32-104); BUN 12 mg/dL (8-22); CALCIUM 8.9 mg/dL (8.8-10.2); CHLORIDE 94 mmol/L (98-107); COSMO 282; CREATININE 0.6 mg/dL (0.5-0.9); ESTIMATED GFR > 60; GLUCOSE 110 mg/dL (70-104); GOT 10 U/L (10-30); GPT 8 U/L (10-36); POTASSIUM 3.7 mmol/L (3.5-5.1); SODIUM 141 mmol/L (136-145); TCO2 38 mmol/L (25-35); TOTAL BILIRUBIN 0.41 mg/dL (0.20-1.00); TOTAL PROTEIN 7.4 g/dL (6.3-8.3)
--- NOTE | 2018-08-31 07:05 | Diag Imaging Result Doc PS360 ---
EXAM: CHEST-1 VIEW 08/31/2018 HISTORY: SOB TECHNIQUE: AP portable at 0553 COMMENT: There is cardiomegaly. The inspiration is less optimal than on 08/29/2018. Otherwise considering differences in technique there has been no significant change. IMPRESSION: Cardiomegaly. Electronically signed by Storm Cantu 08/31/2018 7:03 AM
--- NOTE | 2018-08-31 07:24 | HISTORY AND PHYSICAL ---
CHIEF COMPLAINT: Shortness of breath. HISTORY OF PRESENT ILLNESS: Ms. Sherwood is a morbidly obese 48-year-old female. She has a medical history that includes obstructive sleep apnea with Pickwickian syndrome. She is noncompliant as far as using a BiPAP or CPAP. This is related to not being able to buy one. She also has COPD, diastolic congestive heart failure, hypertension, GERD, diabetes, hyperlipidemia , anxiety and a hiatal hernia. At any rate she became increasingly short of breath over the day and she came into the emergency room to be evaluated. Chest x-ray showed cardiomegaly with increased pulmonary vascular congestion. She was given Lasix in the emergency room. She will be admitted for further evaluation and treatment. PAST MEDICAL HISTORY: See HPI. PREVIOUS SURGICAL HISTORY: Denies. SOCIAL HISTORY: No tobacco. She did use chewing tobacco but quit 10 years ago. Occasional alcohol. Lives with family. No illicit drugs. FAMILY HISTORY: Positive for hypertension and diabetes, as well as coronary artery disease in first-degree relatives. ALLERGIES: Amoxicillin. HOME MEDICATIONS: The list of home medications has not been reconciled. Orders placed for nursing to reconcile home medications in computer. These will be restarted when appropriate. REVIEW OF SYSTEMS: A 14-point review of systems conducted with the patient and pertinent positives listed above in the HPI. All other systems reviewed and found to be negative. PHYSICAL EXAMINATION: VITAL SIGNS: Temperature 98.2, pulse 93, respirations 22, blood pressure 124/78 , and oxygen saturation is 95% on 2 L nasal cannula. GENERAL: A morbidly obese -Luxembourger female lying on the ER stretcher. She is alert and oriented x3. Answers all questions appropriately. No acute distress. HEENT: The head is atraumatic an normocephalic. The pupils are equal, round, and reactive to light. Extraocular eye movement is intact. The sclerae are nonicteric. The conjunctivae are pink. The oral mucosa is moist. NECK: Short and thick. No JVD. No carotid bruits. The trachea is midline. No thyromegaly. CARDIAC: S1, S2 appreciated. No murmurs, gallops, rubs. Regular rhythm. LUNGS: Decreased bilaterally. Crepitation noted in bilateral lung haji. No rhonchi. No wheezing. Symmetric rise and fall with respirations. ABDOMEN: Protuberant. Soft, nondistended, nontender. Bowel sounds present in all four quadrants. Normoactive. No pulsatile masses. No organomegaly. EXTREMITIES: 2+ edema in bilateral lower extremities, nonpitting. 2+ pedal pulses. No clubbing. No cyanosis. SKIN: Warm, dry, and intact. No acute lesions or rash. NEUROLOGICAL: Alert and oriented x3. Cranial nerves II through XII are grossly intact. LABORATORY DATA: CBC within normal limits. Chemistries within normal limits other than chloride of 95 and carbon dioxide of 39. ProBNP 615. ABG: pH 7.37, pCO2 80%, pO2 60, bicarb 38.2, on 50% Venti-mask. Chest x-ray shows cardiomegaly with increased pulmonary vascular congestion. ASSESSMENT: 1. Hvmcm-wn-[id number] diastolic heart failure. 2. Acute respiratory failure secondary to #1. 3. Pickwickian syndrome. 4. Obstructive sleep apnea. 5. Chronic obstructive pulmonary disease (COPD). 6. Diabetes mellitus type 2. 7. Hypertension heart disease. 8. Gastroesophageal reflux disease (GERD). PLAN: Admit the patient. We will diurese with IV Lasix 40 mg b.i.d. Use bronchodilators. Restart home medications when they have been reconciled. Consult Dr. Purvis for sleep study for obstructive sleep apnea. The patient will be started on BiPAP. She needs a BiPAP or CPAP for home management. Hold metformin, which I believe she takes at home. Sliding scale insulin and fingerstick blood sugar. Further recommendations per patient's clinical course. Dictated by FREDY Ji for Geneva Orellana MD cc: FREDY Ji MD Joel Alonzo Powell, Jr, MD Independent exam and assessment performed by me. Discussed the above plan in conjunction with pt and family at bedside. Pt will need more diuretics at the time of discharge. Educated on the need to avoid sodas and high salt intake. MTDD
[2018-08-31] MEDS: LASIX IV SCH ×2 (10:11→20:30)
[2018-08-31] MEDS: COZAAR PO SCH ×3 (10:11→12:26)
[2018-08-31] MEDS: KLOR-CON PO SCH ×2 (10:11→20:30)
[2018-08-31] MEDS: NORVASC PO SCH (10:11)
[2018-08-31] MEDS: NEURONTIN PO SCH (10:11)
--- NOTE | 2018-08-31 14:22 | CONSULTATION ---
DATE OF CONSULTATION: 08/30/2018 REQUESTING PROVIDER: FREDY Currie. REASON FOR CONSULTATION: Respiratory failure, needs CPAP. Addendum: The patient also has chronic hypoxemic respiratory failure secondary to obesity hypoventilation syndrome and obstructive sleep apnea. She is on home oxygen for several years. Recently, she has to use oxygen continuously with flow rate at 3.5 L/min. INCOMPLETE REPORT - DICTATION ENDS HERE Dictated by FREDY Lake for Elisha Purvis MD cc: FREDY Lake MD MTDD
--- NOTE | 2018-08-31 15:40 | PROGRESS NOTE ---
DATE: 08/31/2018 SUBJECTIVE: Today, Ms. Sherwood refers to be doing fairly okay. Denies any complaints. OBJECTIVE: Vital Signs: Blood pressure is 130/87, pulse 97, respirations 20, temperature 98.4. General: Ms. Sherwood is a 48-year-old morbidly obese female. BMI is 85.2. She is in bed. Not seemingly distress. HEENT: Mucosa is pink and moist. Anicteric. Acyanotic. Neck: Supple. Chest: Clear to auscultation. Cardiovascular: Regular rate and rhythm. No murmurs, no rubs, no gallops. Abdomen: Soft, distended, nontender. Bowel sounds present. Extremities: No pedal edema Central Nervous System: Patient is awake, alert, oriented and follows basic commands. LABORATORY DATA: WBC is 4.28, hemoglobin is 12.0, platelet count of 241,000. Chemistry is also reviewed. Bicarb is 38. Rest of chemistry is unremarkable. A chest x-ray this morning shows cardiomegaly. ASSESSMENT: 1. Acute on chronic hypercarbic respiratory failure. The patient's pCO2 is down to 74, which is almost getting to her baseline. 2. Acute hypoxemic respiratory failure, improved. 3. Morbid obesity with obesity hypoventilation syndrome. The patient is being evaluated for BiPAP. 4. Chronic respiratory acidosis with metabolic compensation noted. 5. Hypertension. We will continue with Cozaar and amlodipine. 6. Peripheral neuropathy. Patient is on gabapentin. cc: Gordo Georges MD
[2018-09-01] MEDS: DUONEB (A & A) INH SCH ×3 (03:15→15:37)
[2018-09-01] MEDS: HEPARIN SUBQ SCH ×2 (05:40→11:09)
[2018-09-01 05:56] LABS: ALLEN TEST YES; BLOOD TYPE ARTERIAL; HCO3-(ACT) 35.1 mmoll (20.0-26.0); METHB 0.1 % (0.0-1.5); O2HB 96.4 % (95.0-99.0); PO2(98.6) 95 mmHg (60-100); SAMPLE BLOOD; SAO2 97.8 % (95.0-100.0); THB 12.5 g/dL (11.5-17.4); pH(98.6) 7.43 (7.35-7.45)
[2018-09-01 07:00] LABS: MODALITY BI PAP; PCO2(98.6) 60 mmHg (35-45)
[2018-09-01] MEDS: HUMALOG SUBQ SCH ×3 (07:23→16:18)
[2018-09-01] MEDS: LASIX IV SCH (08:27)
[2018-09-01] MEDS: COZAAR PO SCH (08:28)
[2018-09-01] MEDS: NEURONTIN PO SCH (08:28)
[2018-09-01] MEDS: KLOR-CON PO SCH (08:28)
[2018-09-01] MEDS: NORVASC PO SCH (08:28)
[2018-09-01] MEDS: SYMBICORT 160/4.5 MICROGM INHALER INH SCH (10:03)
[2018-09-01 16:13] VITALS: BP 131/66
--- NOTE | 2018-09-02 12:47 | DISCHARGE SUMMARY ---
ADMISSION DATE: 08/29/2018 DISCHARGE DATE: 09/01/2018 DISPOSITION: Home with home health. FOLLOW UP: Dr. Purvsi. CONSULTATION DURING ADMISSION: Pulmonary Medicine was consulted. Patient was seen by Dr. Purvis. INVASIVE PROCEDURES DONE DURING ADMISSION: None. IMAGING STUDIES OF SIGNIFICANCE: A chest x-ray was done on admission which showed cardiomegaly and pulmonary vascular congestion. A repeat was done yesterday which continued to show cardiomegaly. ADMISSION DIAGNOSES: 1. Acute on chronic diastolic heart failure. 2. Acute respiratory failure. 3. Pickwickian syndrome. 4. Obstructive sleep apnea. 5. Chronic obstructive pulmonary disease. DIAGNOSES AT TIME OF DISCHARGE: 1. Acute on chronic hypercarbic respiratory failure, pCO2 trended down on BiPAP therapy. Patient had been given BiPAP from the hospital. 2. Acute hypoxemic respiratory failure, improved. 3. Morbid obesity with obesity hypoventilation syndrome. 4. Obstructive sleep apnea. 5. Chronic respiratory acidosis with metabolic alkalosis compensation. 6. Hypertension. 7. Peripheral neuropathy. 8. Chronic obstructive pulmonary disease. 9. Gastroesophageal reflux disease. DISCHARGE MEDICATIONS: 1. Metformin 500 p.o. daily. 2. Furosemide 40 mg daily. 3. Albuterol inhaler. 4. Amlodipine 10 mg daily. 5. Gabapentin 600 mg daily. 6. Symbicort inhaler. 7. Losartan 25 mg daily. 8. DuoNeb's p.r.n. PRESENTING COMPLAINT: Shortness of breath. HISTORY OF PRESENTING COMPLAINT: Ms. Sherwood is a 48-year-old female known to have obstructive sleep apnea, COPD, overlap with obesity hypoventilation syndrome. She came to the emergency department because of shortness of breath. Upon presentation, Ms. Sherwood was evaluated. An ABG revealed a pCO2 of 80. Her O2 saturation by pulse oximeter was down to 57 at one point. The patient was started on BiPAP and admitted to the medical floor. HOSPITAL COURSE: Ms. Sherwood did improve significantly with the BiPAP therapy. Pulmonary Medicine was consulted. Patient was seen by Dr. Purvis. Medications were titrated, and her other chronic comorbidities were all addressed. Ms. Sherwood continued to improve from respiratory standpoint. ABG this morning showed the pCO2 of 60, which seems to be her regular baseline. She is now asymptomatic. She feels well and she is stable for discharge. Her current vitals, blood pressure is 131/66, pulse 99, respirations 20, and temperature 98.6 degrees. The patient was saturating 95% on 3 L. Ms. Sherwood is clinically stable. She will be discharged. She will follow up with Dr. Purvis. All of the discharge instructions have been discussed with her, and she voices understanding. She has been fitted for a face mask and has been taught about the use of the new BiPAP machine. TIME SPENT FOR DISCHARGE: 37 minutes. cc: MD Dr. Yaniv Meyer
--- NOTE | 2018-09-07 02:07 | PROVIDER DOCUMENTATION ---
This chart was entered by José Antonio Young Scribe, acting as scribe for Devendra Conteh MD. HPI-Respiratory General - General Chief Complaint: Shortness of Breath Stated Complaint: COUGHING / SHORTNESS OF BREATH / EDEMA Time Seen by Provider: 08/29/18 18:54 Source: patient Allergies/Adverse Reactions: Patient Allergies Allergy/AdvReac Type Severity Reaction Status Date / Time amoxicillin [Amoxicillin] Allergy Severe RASH Verified 08/14/17 17:43 Home Medications: Home Medication List Medication Instructions Recorded Confirmed Last Taken Type Metformin [Glucophage] 1 tab PO DAILY 10/20/16 08/30/18 05/11/17 History Albuterol Sulfate [Proventil Hfa] 6.7 gm IH DIRECTED #1 hfa.aer.ad 05/19/17 08/30/18 Unknown Rx Amlodipine [Norvasc] 10 mg PO DAILY #30 tab 05/19/17 08/30/18 Unknown Rx Furosemide [Lasix] 40 mg PO DAILY 30 Days tablet 05/19/17 08/30/18 1 Day Ago Rx ~08/29/18 Albuterol 2.5MG/Ipratrop 0.5MG 3 ml INH RTQ4H PRN 08/30/18 08/30/18 Unknown History [Duoneb (A & A)] Budesonide/Formoterol Inhaler 2 puff INH Q4H PRN PRN 08/30/18 08/30/18 Unknown History [Symbicort 160/4.5 Microgm Inhaler] Gabapentin 600 mg PO DAILY 08/30/18 08/30/18 Unknown History Losartan [Cozaar] 25 mg PO DAILY 08/30/18 08/30/18 Unknown History - History of Present Illness-Resp Nature of Presenting Problem: Pt is a 48 c/o F presents to ED with a cough and SOB on and off for 1 week. She reports COPD and a recent URI last week. She says she wears home O2 at 2L. Quality of Pain: reports: none Severity in ED: reports: mild Onset/Duration: reports: 1 week ago Timing: reports: intermittent Cough Quality/Degree: reports: moderate, dry cough Current Respiratory Medication Therapy: Initiated see nurses note Modifying Factors: improves with: nothing Associated Symptoms: reports: cough, shortness of breath. denies: fever/chills, hurts to breathe, muscle/bodyaches, nasal congestion, wheezing Similar Symptoms Previously?: Yes Recently seen or treated by another doctor?: Yes Review of Systems - Adult - REVIEW OF SYSTEMS - ADULT Constitutional: denies: chills, fever Eyes: reports: no symptoms reported Ears, Nose, Mouth & Throat: reports: no symptoms reported Cardiovascular: reports: no symptoms reported Respiratory: reports: cough, shortness of breath. denies: wheezing Gastrointestinal: denies: abdominal pain, nausea Genitourinary: reports: no symptoms reported Musculoskeletal: denies: bone pain, neck pain Integumentary: reports: no symptoms reported Neurological: denies: dizziness/vertigo, headache/migraines Psychiatric: reports: no symptoms reported Endocrine: reports: no symptoms reported Hematologic/Lymphatic: reports: no symptoms reported Allergic/Immunologic: reports: no symptoms reported All Other Systems: Reviewed and Negative Past History - Adult - PAST MEDICAL HISTORY-ADULT Review of Records: reports: Old Records Reviewed, Nursing Assessment Review, Medications Reviewed Major Childhood Illnesses: reports: denies history Cardiovascular: reports: CHF, HTN, hyperlipidemia, other (DIASTOLIC HEART FAILURE) Respiratory: reports: asthma, COPD, sleep apnea Gastrointestinal: reports: denies history Obstetrical/Gynecological: reports: denies history Genitourinary: reports: denies history Musculoskeletal: reports: chronic pain Neurological: reports: denies history Psychiatric: reports: anxiety Endocrine/Immune: reports: Diabetes Other Conditions: reports: denies history - PRIOR SURGERIES/PROCEDURES Surgical/Procedure History: reports: none - IMMUNIZATION STATUS Childhood Immunizations: See Nurse Assessment Flu Vaccine: See Nurse Assessment - FAMILY HISTORY Family History: reviewed, not pertinent - SOCIAL HISTORY Smoking: non-smoker Substance Use: alcohol Alcohol Use Frequency: 1 or 2 times last year Living Situation: family Physical Exam-General - PHYSICAL EXAM-ADULT Initial Vital Signs Reviewed: Yes - CONSTITUTIONAL General Appearance: alert, obese (morbid) - EYES Eyes: PERRL/EOMI, pink conjunctivae - HEAD, EARS, NOSE, MOUTH & THROAT HENMT: normocephalic/atraumatic, moist mucous membranes - NECK Neck: non-tender, full range of motion, supple, normal inspection - RESPIRATORY Respiratory: lungs clear, decreased breath sounds. negative: rhonchi, wheezing - CARDIOVASCULAR Cardiovascular: normal peripheral pulses, tachycardia - GASTROINTESTINAL (ABDOMEN) Abdominal Exam: normal bowel sounds, non tender, soft - MUSCULOSKELETAL Back Exam: normal inspection, no CVA tenderness, no vertebral tenderness Extremity: normal range of motion, non-tender, normal gait, pedal edema (trace in both legs and feet) - SKIN Integumentary: normal color, normal turgor, warm/dry - NEUROLOGIC Neurologic: grossly normal, no motor/sensory deficits - PSYCHIATRIC Psych/Mental Status: normal thought process, oriented x 3 Progress - PLAN OF CARE/RESULTS Progress/Plan/Lab Results: Orders Category Date Time Status Admit - [facility] Routine AdmDCTranf 08/29/18 21:43 Active Activity - Strict Bedrest ORDERED Care 08/29/18 21:43 Active FSBS/Accucheck Result AC + HS Care 08/29/18 21:43 Active [facility] ROUTINE Care 08/29/18 21:43 Active Intake and Output-Strict ORDERED Care 08/29/18 21:43 Active Nursing- MD Consult Request ROUTINE Care 08/29/18 21:45 Active Update & Confirm Home Medicati ROUTINE Care 08/29/18 22:02 Active Vital Signs Order Q 8-HR ASSESS Care 08/29/18 21:43 Completed Z-Document. for Tele Applied ORDERED Care 08/29/18 21:44 Completed Physician/Provider Consults Routine Cons 08/30/18 08:00 Ordered Diabetic Diet Diet 08/29/18 21:44 Completed CHEST-PORTABLE [RAD] Stat Exams 08/29/18 19:18 Completed A1C HGB W EST AVG GLUCOSE [CHEM] Routine Lab 08/29/18 19:44 Completed ABG [RESP] Routine Lab 08/29/18 20:39 Completed BASIC METABOLIC PANEL [CHEM] Routine Lab 08/30/18 06:03 Completed CBC WITH DIFF [HEME] Routine Lab 08/30/18 06:03 Completed CBC WITH ELECTRONIC DIFF [HEME] Stat Lab 08/29/18 19:33 Completed CK PROFILE [SP CHEM] Stat Lab 08/29/18 20:08 Completed COMPREHENSIVE METABOLIC PANEL [CHEM] Stat Lab 08/29/18 20:08 Completed PRO B-NATRIURETIC PEPTIDE Stat Lab 08/29/18 20:08 Completed TSH Routine Lab 08/30/18 06:03 Completed URINALYSIS W/POSS RFLX CULT [URINALYSIS] Stat Lab 08/29/18 20:15 Completed Acetaminophen [Tylenol] Med 08/29/18 21:43 Discontinued 650 mg PO Q6H PRN PRN Albuterol 2.5MG/Ipratrop 0.5MG [Duoneb (A & A)] Med 08/29/18 19:21 Discontinued 3 ml INH NOW ONE Albuterol 2.5MG/Ipratrop 0.5MG [Duoneb (A & A)] Med 08/29/18 23:47 Discontinued 3 ml INH RTQ6H Furosemide [Lasix] Med 08/30/18 09:00 Discontinued 40 mg IV BID Furosemide [Lasix] Med 08/29/18 21:08 Discontinued 80 mg IV NOW ONE Heparin Med 08/29/18 21:45 Discontinued 5,000 unit SUBQ Q8H Hydrocodone/APAP 7.5 mg/325 mg [[place]-7.5] Med 08/29/18 21:43 Discontinued 1 - 2 each PO Q6H PRN PRN Insulin Lispro [Humalog] Med 08/30/18 07:00 Discontinued See Protocol SUBQ 0700,1100,1600,2100 Ondansetron [Zofran] Med 08/29/18 21:43 Discontinued 4 mg IV Q4H PRN PRN Aerosol Treatments Routine Oth 08/29/18 19:21 Completed Aerosol Treatments Routine Oth 08/29/18 23:47 Completed Aerosol Treatments Stat Oth 08/29/18 19:21 Completed Aerosol Treatments Stat Oth 08/29/18 23:47 Completed BIPAP Stat Oth 08/29/18 21:09 Active Telemetry [OM.EQ] Routine Oth 08/29/18 21:43 Active Transfer/Admit Order [TRANSFER] Routine Transfer 08/29/18 21:49 Completed Result Diagrams: 08/31/18 05:46 08/31/18 05:46 - EKG 1 Time of EKG reading by physician:: 19:01 EKG Read and Signed by:: Devendra Conteh EKG Interpretation (*Must complete 3 of following elements*): Abnormal Rate: 104 Rhythm: Sinus Tachycardia Comments: otherwise normal ECG - CONSULTS/PCP/HOSPITALIST Notification #1 *Consult/PCP/Hospitalist*: Dr. Orellana Time Discussed: 21:15 Consult Disposition: Admit Departure - Departure Date of Disposition Decision: 08/29/18 Time of Disposition Decision: 22:17 DIAGNOSIS: Morbid obesity CHF (congestive heart failure) Qualifiers: Heart failure type: unspecified Heart failure chronicity: acute on chronic Qualified Code(s): I50.9 - Heart failure, unspecified COPD (chronic obstructive pulmonary disease) Qualifiers: COPD type: unspecified COPD Qualified Code(s): J44.9 - Chronic obstructive pulmonary disease, unspecified Sleep apnea Qualifiers: Sleep apnea type: unspecified type Qualified Code(s): G47.30 - Sleep apnea, unspecified Acute and chronic respiratory failure Qualifiers: Respiratory failure complication: hypoxia and hypercapnia Qualified Code(s): J96.21 - Acute and chronic respiratory failure with hypoxia; J96.22 - Acute and chronic respiratory failure with hypercapnia Disposition: ADMITTED INPATIENT 09 Certified Medical Emergency: Emergent Condition: Serious - Critical Care Note This patient required my direct & personal management of CC.: No Attestation - Physician/ GENE Attestation The physician spent face to face time with patient:: Yes Advanced Practice Provider documentation review:: Supervising physician onsite and consulted in the evaluation and care of this patient. The physician did have a face to face encounter with the patient. This chart was documented by the indicated scribe, (José Antonio Young Scribe) and accurately reflects the services I performed and decisions made by me, Devendra Conteh MD, as attested by the provider's signature.
== END 2018-09-01 18:07 | disposition home or self-care (01) | DRG 291 ==
LOC: ED 18:42 → SUATTDRO 22:50 → 4N 22:50
PROVIDERS: ATTEND Internal Medicine
CPT/HCPCS: 71010; 71045; 80048; 80053; 81001; 82550; 82805; 82948; 83036; 83880; 84443; 85025; 90686; 90732; 93005; 94640; 94660; 94761; 99285; A9270; J1644; J1940; XXXXX

== ENCOUNTER 2019-08-27 14:40 | Inpatient (IN) ==
--- NOTE | 2019-08-27 14:58 | PROVIDER DOCUMENTATION ---
HPI-General Adult - General Chief Complaint: Shortness of Breath Stated Complaint: SOB,FLUID BUILD UP Time Seen by Provider: 08/27/19 14:57 Source: patient Allergies/Adverse Reactions: Patient Allergies Allergy/AdvReac Type Severity Reaction Status Date / Time amoxicillin [Amoxicillin] Allergy Severe RASH Verified 08/27/19 17:51 Home Medications: Home Medication List Medication Instructions Recorded Confirmed Last Taken Type Metformin [Glucophage] 500 mg PO DAILY 10/20/16 08/27/19 08/27/19 History Albuterol Sulfate [Proventil Hfa] 6.7 gm IH DIRECTED #1 hfa.aer.ad 05/19/17 08/27/19 08/27/19 Rx Amlodipine [Norvasc] 10 mg PO DAILY #30 tab 05/19/17 08/27/19 08/27/19 Rx Furosemide [Lasix] 40 mg PO DAILY 30 Days tablet 05/19/17 08/27/19 08/27/19 Rx Albuterol 2.5MG/Ipratrop 0.5MG 3 ml INH RTQ4H PRN 08/30/18 08/27/19 Unknown History [Duoneb (A & A)] Budesonide/Formoterol Inhaler 2 puff INH Q4H PRN PRN 08/30/18 08/27/19 08/27/19 History [Symbicort 160/4.5 Microgm Inhaler] Losartan [Cozaar] 25 mg PO DAILY 08/30/18 08/27/19 08/27/19 History Potassium Chloride 10 meq PO BID 08/27/19 08/27/19 08/27/19 History - History of Present Illness -Gen Adult Nature of Presenting Problems: 49yo female wit PMH of CHF and COPD presents with CC of shortness of breath for 1 week. The patient reports increased swelling as well as increased shortness of breath with exertion. The patient denies fever, the patient denies any current chest pain or numbness. The patient has needed to increase her home O2 use. Review of Systems - Adult - REVIEW OF SYSTEMS - ADULT Constitutional: reports: no symptoms reported. denies: fever Eyes: reports: no symptoms reported. denies: eye pain Ears, Nose, Mouth & Throat: reports: no symptoms reported. denies: throat pain Cardiovascular: reports: palpitations. denies: chest pain Respiratory: reports: cough, dyspnea on exertion, shortness of breath Gastrointestinal: reports: no symptoms reported. denies: abdominal pain, diarrhea, nausea, vomiting Genitourinary: reports: no symptoms reported. denies: flank pain Musculoskeletal: reports: no symptoms reported. denies: back pain Integumentary: reports: no symptoms reported Neurological: reports: no symptoms reported. denies: headache/migraines Psychiatric: reports: no symptoms reported. denies: alcohol/drug dependence Endocrine: reports: no symptoms reported Hematologic/Lymphatic: reports: no symptoms reported Allergic/Immunologic: reports: no symptoms reported Past History - Adult - PAST MEDICAL HISTORY-ADULT Review of Records: reports: Old Records Reviewed, Nursing Assessment Review, Medications Reviewed Major Childhood Illnesses: reports: denies history Cardiovascular: reports: CHF, HTN, hyperlipidemia, other (DIASTOLIC HEART FAILURE) Respiratory: reports: asthma, COPD, sleep apnea Gastrointestinal: reports: denies history Obstetrical/Gynecological: reports: denies history Genitourinary: reports: denies history Musculoskeletal: reports: chronic pain Neurological: reports: denies history Psychiatric: reports: anxiety Endocrine/Immune: reports: Diabetes Other Conditions: reports: denies history - PRIOR SURGERIES/PROCEDURES Surgical/Procedure History: reports: none - IMMUNIZATION STATUS Childhood Immunizations: See Nurse Assessment Flu Vaccine: See Nurse Assessment - FAMILY HISTORY Family History: reviewed, not pertinent - SOCIAL HISTORY Smoking: denies Substance Use: none/never Alcohol Use Frequency: occasionally Physical Exam-General - PHYSICAL EXAM-ADULT Exam Limited by: Obesity Initial Vital Signs Reviewed: Yes - CONSTITUTIONAL General Appearance: appears well, alert, no apparent distress - EYES Eyes: negative: conjuctival exudate, photophobia, sclera injected, scleral icterus - HEAD, EARS, NOSE, MOUTH & THROAT HENMT: normocephalic/atraumatic, moist mucous membranes, pharynx normal - NECK Neck: normal inspection - RESPIRATORY Respiratory: decreased breath sounds (bilaterally), rales (RLL) - CARDIOVASCULAR Cardiovascular: regular rate, rhythm. negative: no edema (2+ LE edema) - GASTROINTESTINAL (ABDOMEN) Abdominal Exam: non tender, soft - MUSCULOSKELETAL Extremity: non-tender, swelling. negative: deformity - SKIN Integumentary: normal color, warm/dry. negative: cyanosis, diaphoresis, jaundice - NEUROLOGIC Neurologic: grossly normal - PSYCHIATRIC Psych/Mental Status: normal mood/affect, normal thought content, normal thought process Progress - PLAN OF CARE/RESULTS Result Diagrams: 08/27/19 17:06 08/27/19 17:06 - REASSESSMENT Reassessment #1 Status: other (Pt present with CC of shortness of breath and increased need for oxygen. Given hypoxia and elvated BNP and need for supplimental oxygen will plan for admission. Discussed with the hospitalist who has accepted for admission.) - EKG 1 Time of EKG reading by physician:: 15:03 EKG Read and Signed by:: Ronak Fan EKG Interpretation (*Must complete 3 of following elements*): Abnormal Rate: 100 Rhythm: sinus [place]: normal QRS: normal [place] Interval: normal ST Wave: normal Comments: Prolonged QTc - XRAY 1 XRAY Study: Chest Impression: See EMR Report (Patient: SELVIN DOUGLASADM Date: 08/27/19MR#: [id number] : 1970ADM Status: PRE ERAcct#: [id number] Age/Sex: 49/FRoom/Bed: Loc: ED Ordering Physician: Ronak Fan MD Family Physician: Desmond Mcqueen Jr, MD Reason for Procedure: Shortness of breath ___ Signed EXAM: CHEST-1 VIEW - 08/27/2019 HISTORY: Shortness of breath TECHNIQUE: Portable chest one view COMPARISON: 08/31/2018 FINDINGS: There is stable cardiomegaly. There is some prominence of central vascular markings. There is no consolidation, gross pulmonary edema, pleural effusion, or pneumothorax identified. IMPRESSION: Cardiomegaly with possible mild vascular congestion. Electronically signed by Tobi Spangler 08/27/2019 3:26 PM 08/27/19 1526 Interpreting Physician: Tobi Spangler MD Dictated Date/Time: 08/27/19 1524 cc: Ronak Fan MD; Desmond Mcqueen Jr, MD) Departure - Departure Date of Disposition Decision: 08/27/19 Time of Disposition Decision: 20:19 DIAGNOSIS: Acute and chronic respiratory failure with hypoxia Congestive heart failure (CHF) Qualifiers: Heart failure type: diastolic Heart failure chronicity: acute on chronic Qualified Code(s): I50.33 - Acute on chronic diastolic (congestive) heart failure Disposition: ADMITTED INPATIENT 09 Certified Medical Emergency: Emergent Condition: Fair - Critical Care Note This patient required my direct & personal management of CC.: No Attestation - Physician/ GENE Attestation Patient care was provided by Advanced Practice Provider:: No The physician spent face to face time with patient:: Yes Advanced Practice Provider documentation review:: Supervising physician onsite and consulted in the evaluation and care of this patient. The physician did have a face to face encounter with the patient.
--- NOTE | 2019-08-27 15:28 | Diag Imaging Result Doc PS360 ---
EXAM: CHEST-1 VIEW - 08/27/2019 HISTORY: Shortness of breath TECHNIQUE: Portable chest one view COMPARISON: 08/31/2018 FINDINGS: There is stable cardiomegaly. There is some prominence of central vascular markings. There is no consolidation, gross pulmonary edema, pleural effusion, or pneumothorax identified. IMPRESSION: Cardiomegaly with possible mild vascular congestion. Electronically signed by Tobi Spangler 08/27/2019 3:26 PM
--- NOTE | 2019-08-27 17:24 | EKG Report ---
Test Performed on : 08/27/2019 2:53:20 PM Test Reason : Shortness of breath Blood Pressure : / mmHG Vent. Rate : 100 BPM Atrial Rate : 100 BPM P-R Int : 136 ms QRS Dur : 096 ms QT Int : 380 ms P-R-T Axes : 048 069 038 degrees QTc Int : 490 ms Normal sinus rhythm. Prolonged QT Abnormal ECG When compared with ECG of 29-AUG-2018 19:01, No significant change was found Unconfirmed Result
[2019-08-27 17:34] LABS: BASO# 0.01 X1000 (0.0-0.2); BASO% 0.1 % (0.0-0.8); EOS# 0.04 X1000 (0.0-0.7); EOS% 0.4 % (0.0-10.0); HEMATOCRIT 41.3 % (37.0-47.0); HEMOGLOBIN 12.1 g/dL (12.0-16.0); IMM GRAN# 0.04 X1000 (0.0-0.04); IMM GRAN% 0.4 % (0.0-0.5); LYMPH% 14.2 % (20.5-51.1); MCH 26.8 PG (27-31); MCHC 29.3 g/dL (33-37); MCV 91.4 FL (81-99); MONO% 4.4 % (1.7-9.3); MPV 11.3 FL (7.4-10.4); NEUT# 7.37 X1000 (1.4-6.5); NEUT% 80.5 % (42.2-75.2); PLT 257 X1000 (130-400); RBC 4.52 XMIL (4.2-5.4); RDW 16.6 % (11.5-14.5); WBC 9.16 X1000 (4.8-10.8)
[2019-08-27 17:41] LABS: INR 1.03; PROTIME 13.6 Seconds (11.0-16.0)
[2019-08-27 17:42] LABS: PTT 28.4 Seconds (22.3-41.8)
[2019-08-27 18:01] LABS: AGAP 14; ALB/GLOB RATIO 1.2; ALBUMIN 4.2 g/dL (3.5-5.0); ALKALINE PHOSPHATASE 129 U/L (32-104); BUN 22 mg/dL (8-22); CALCIUM 8.6 mg/dL (8.8-10.2); CHLORIDE 99 mmol/L (98-107); CK PROFILE 115 U/L (24-173); COSMO 286; CREATININE 0.9 mg/dL (0.5-0.9); ESTIMATED GFR > 60; GLUCOSE 86 mg/dL (70-104); GOT 22 U/L (10-30); GPT 24 U/L (10-36); POTASSIUM 4.8 mmol/L (3.5-5.1); SODIUM 142 mmol/L (136-145); TCO2 29 mmol/L (25-35); TOTAL BILIRUBIN 0.69 mg/dL (0.20-1.00); TOTAL PROTEIN 7.7 g/dL (6.3-8.3)
[2019-08-27] MEDS ORDERED: LASIX IV ONE (18:35)
[2019-08-27] MEDS ORDERED: DUONEB (A & A) INH ONE (19:08)
[2019-08-27 19:50] LABS: URINE SOURCE CLEAN CATCH
[2019-08-27 19:56] LABS: BILIRUBIN URINE NEGATIVE (NEGATIVE); BLOOD URINE NEGATIVE (NEGATIVE); COLOR YELLOW; GLUCOSE URINE NEGATIVE (NEGATIVE); KETONE URINE NEGATIVE (NEGATIVE); LEUKOCYTES URINE TRACE (NEGATIVE); NITRITE URINE NEGATIVE (NEGATIVE); PROTEIN URINE TRACE mg/dL (NEGATIVE); SP GRAVITY URINE 1.031; TURBIDITY URINE CLEAR (CLEAR); UROBILINOGEN URINE 2 mg/dL (NORMAL)
[2019-08-27 19:58] LABS: UR EPITHELIAL CELLS <10 /HPF (<10); URINE BACTERIA NEGATIVE /HPF; URINE RBC <10 /HPF (<10); URINE WBC <10 /HPF (<10)
[2019-08-27 20:40] LABS: ALLEN TEST YES; BE 7.5 mmoll (-3.0-3.0); BLOOD TYPE ARTERIAL; HCO3-(ACT) 30.7 mmoll (20.0-26.0); METHB 0.1 % (0.0-1.5); O2(CT) 15.7 mL/dL (15.0-23.0); O2HB 93.7 % (95.0-99.0); SAMPLE BLOOD; SAO2 97.8 % (95.0-100.0); pH(98.6) 7.38 (7.35-7.45)
[2019-08-27 20:42] LABS: MODALITY CANNULA
[2019-08-27 20:43] LABS: PCO2(98.6) 58 mmHg (35-45)
[2019-08-27 20:44] LABS: PO2(98.6) 30 mmHg (60-100)
--- NOTE | 2019-08-27 21:34 | HISTORY AND PHYSICAL ---
CHIEF COMPLAINT: Shortness of breath. HISTORY OF PRESENT ILLNESS: This is a 49-year-old female with a history of diastolic heart failure, COPD, pickwickian syndrome, morbid obesity, obstructive sleep apnea with CPAP, hypertension, GERD, diabetes type 2, hyperlipidemia and anxiety as well as a hiatal hernia, who comes in after having around a week of increasing shortness of breath but it has gotten progressively worse over the last 2 days so she came into the emergency room. She was here fairly frequently, but it has been a year since she was seen and admitted. She, again, used to have a problem with compliance but she has been wearing her CPAP and taking her medications more regularly. Laboratory data was actually grossly normal other than her ABG. Her CO2 was elevated at 58, but she is a chronic retainer. This is at her baseline. Her PO2, however, was 30. Chest x-ray showed increased pulmonary vascular congestion and cardiomegaly. She will be admitted for further evaluation and treatment. PAST MEDICAL HISTORY: See HPI. PREVIOUS SURGICAL HISTORY: Denies. SOCIAL HISTORY: No tobacco. Did use chewing tobacco, but quit around 10 years ago. Occasional alcohol. Lives with family. No illicit drugs. FAMILY HISTORY: Positive for hypertension, diabetes and coronary artery disease in first-degree relatives. ALLERGIES: Allergic to amoxicillin. HOME MEDICATIONS: List is not available at this time. An order was placed for Nursing to reconcile this with the pharmacy. These will be restarted when appropriate. REVIEW OF SYSTEMS: Fourteen-point review of systems conducted with the patient. She has had a dry cough with very little sputum. When she is able to produce sputum it has been thick, she stated. All other pertinent positives listed above in the HPI. All other systems reviewed and found to be negative. PHYSICAL EXAMINATION: VITAL SIGNS: Temperature 98.5, pulse 94, respirations 18, blood pressure 157/88, oxygen saturation 93% on 3 L nasal cannula. GENERAL: Pleasant 49-year-old female lying in the ER stretcher. She is alert and oriented times 3, in no acute distress. HEENT: Head is atraumatic, normocephalic. Pupils equal, round, reactive to light. Extraocular eye movement is intact. Sclera is anicteric. Conjunctiva is pink. Oral mucosa is moist. NECK: Supple. No JVD. No thyromegaly. LUNGS: Crepitation throughout bilateral lung haji. Very mild expiratory wheeze that clears with cough. Symmetric rise and fall with respirations. ABDOMEN: Protuberant, soft, nondistended, nontender. Bowel sounds present all 4 quadrants, normoactive. No pulsatile mass. No organomegaly. EXTREMITIES: One to two-plus edema in bilateral lower extremities, nonpitting. Two-plus pedal pulses bilaterally. No clubbing. No cyanosis. SKIN: Warm, dry, intact. No acute lesions or rash. NEUROLOGICAL: Alert and oriented times 3. Cranial nerves 2 through 12 grossly intact. DIAGNOSTIC DATA: Chest x-ray: Cardiomegaly with increased pulmonary vascular congestion. LABORATORY DATA: CBC within normal limits. Coagulation studies within normal limits and chemistry panel within normal limits. Her ABG: pH was 7.38, pCO2 of 58, PO2 of 30, bicarbonate 30.7. Urine is unremarkable. ProBNP mildly elevated at 775. ASSESSMENT: 1. Diastolic congestive heart failure with exacerbation. 2. Acute on chronic hypoxic respiratory failure. 3. Chronic obstructive pulmonary disease. 4. Pickwickian syndrome. 5. Diabetes mellitus type 2. 6. Hypertension. PLAN: Admit patient to the medical floor. Mamadou. Lasix 40 mg was given in the emergency room. We will repeat 40 mg in 6 hours and then we will start back on 40 mg daily. Reevaluate patient's fluid volume status tomorrow morning. We will continue her home medications once these are reconciled. We will not give steroids at this time. She does not appear to be in a full-blown COPD exacerbation. We will continue to monitor status. Further recommendations per patient clinical course. Dictated by FREDY Ji for Taran Johnston MD I have performed a face to face diagnostic evaluation. Labs/xrays- reviewed. Exam- Chest scattered wheezes, Abd- obese A/P- CHF, diastolic dysfunction, - Admit, gentle diuresis, Dr. Johnston cc: FREDY Ji MD [facility]
[2019-08-28] MEDS ORDERED: ZOFRAN IV PRN (00:11)
[2019-08-28] MEDS ORDERED: LASIX IV ONE (01:00)
[2019-08-28] MEDS: HEPARIN SUBQ SCH ×3 (01:35→16:14)
[2019-08-28] MEDS: DUONEB (A & A) INH SCH ×5 (03:17→21:17)
[2019-08-28] MEDS: LASIX IV SCH (08:15)
[2019-08-28] MEDS ORDERED: ZAROXOLYN PO ONE (18:22)
--- NOTE | 2019-08-28 19:40 | PROGRESS NOTE ---
DATE: 08/28/2019 INTERVAL HISTORY: She was admitted for acute hypoxic respiratory failure. Ms. Sherwood states she has been making a good amount of urine. She, at the time of my evaluation, has been breathing 98% on 4 L nasal cannula. SUBJECTIVE: She denies any chest pain at the moment. She is feeling a little short of breath, however, feeling better. She still has lower extremity edema. She denies unusual cough. PHYSICAL EXAMINATION: General: Morbidly obese, not in acute distress. Oral cavity is moist. Examination is limited because of large body habitus. Lungs: She does have inspiratory crackles in bilateral infrascapular regions. Heart: S1, S2 normal. No murmur or gallop. Abdomen: Obese, soft, nontender. Neck: I could not appreciate jugular venous distention. Extremities: She has bilateral lower extremity edema. Neurologic: She is alert and oriented x3. I turned her oxygen down to 3 L and she is still 94%. LABS: No CBC or new BMP today. I have ordered ABG for tomorrow morning. ASSESSMENT AND PLAN: 1. Acute hypoxic respiratory failure on chronic hypoxic respiratory failure, due to acute congestive heart failure, with preserved ejection fraction, exacerbation, leading to acute pulmonary edema. She also has history of obstructive sleep apnea and has been on nighttime CPAP. I will continue current dose of intravenous Lasix and we will give her one time dose of oral metolazone. I will monitor close input and output, and continue oxygen as well as inhaled bronchodilators. Follow up with arterial blood gases tomorrow morning. I will also keep her on nighttime BiPAP as well as Symbicort inhaled. 2. History of noninsulin-dependent diabetes mellitus. I will continue to monitor her blood glucose. 3. History of essential hypertension. She is normotensive. Considering she is on intravenous Lasix, I am holding her home amlodipine and losartan, and will add back as tolerated. DISPOSITION: I will monitor patient inside the hospital and follow up with arterial blood gases tomorrow. Plan of care discussed with her. All of her questions have been answered. I counseled her about weight reduction. She agreed and assured me that she has been working on it. cc: Alexi Ramírez MD
[2019-08-28] MEDS: SYMBICORT 160/4.5 MICROGM INHALER INH SCH (21:16)
[2019-08-29] MEDS: HEPARIN SUBQ SCH ×3 (00:22→16:14)
[2019-08-29 04:54] LABS: BLOOD TYPE ARTERIAL; SAMPLE BLOOD
[2019-08-29 04:57] LABS: ALLEN TEST YES; BE 8.1 mmoll (-3.0-3.0); METHB 0.1 % (0.0-1.5); O2(CT) 15.5 mL/dL (15.0-23.0); PO2(98.6) 50 mmHg (60-100); SAO2 87.6 % (95.0-100.0); THB 12.8 g/dL (11.5-17.4)
[2019-08-29 04:58] LABS: MODALITY BI PAP
[2019-08-29 05:00] LABS: PCO2(98.6) 56 mmHg (35-45)
[2019-08-29] MEDS: DUONEB (A & A) INH SCH ×5 (05:04→21:50)
--- NOTE | 2019-08-29 06:39 | Diag Imaging Result Doc PS360 ---
EXAM: CHEST-1 VIEW HISTORY: pulmonary edema TECHNIQUE: Single view COMPARISON: 08/27/2019 FINDINGS: The lungs are well expanded. The heart is enlarged. There is pulmonary edema. No effusions identified. No consolidation. IMPRESSION: Cardiomegaly with pulmonary edema. No interval improvement. Electronically signed by Curtis Garvey 08/29/2019 6:37 AM
[2019-08-29 07:04] LABS: BASO# 0.01 X1000 (0.0-0.2); BASO% 0.2 % (0.0-0.8); EOS# 0.07 X1000 (0.0-0.7); EOS% 1.2 % (0.0-10.0); HEMATOCRIT 41.8 % (37.0-47.0); HEMOGLOBIN 12.2 g/dL (12.0-16.0); LYMPH# 1.09 X1000 (1.2-3.4); LYMPH% 19.2 % (20.5-51.1); MCH 26.9 PG (27-31); MCHC 29.2 g/dL (33-37); MCV 92.1 FL (81-99); MONO# 0.38 X1000 (0.11-0.59); MONO% 6.7 % (1.7-9.3); MPV 11.3 FL (7.4-10.4); NEUT# 4.12 X1000 (1.4-6.5); NEUT% 72.7 % (42.2-75.2); PLT 264 X1000 (130-400); RBC 4.54 XMIL (4.2-5.4); RDW 16.6 % (11.5-14.5); WBC 5.67 X1000 (4.8-10.8)
[2019-08-29 07:32] LABS: AGAP 12; BUN 18 mg/dL (8-22); CALCIUM 9.6 mg/dL (8.8-10.2); CHLORIDE 97 mmol/L (98-107); COSMO 280; CREATININE 0.7 mg/dL (0.5-0.9); ESTIMATED GFR > 60; GLUCOSE 105 mg/dL (70-104); POTASSIUM 4.1 mmol/L (3.5-5.1); SODIUM 139 mmol/L (136-145); TCO2 30 mmol/L (25-35)
[2019-08-29] MEDS: SYMBICORT 160/4.5 MICROGM INHALER INH SCH ×2 (08:33→21:50)
[2019-08-29] MEDS: LASIX IV SCH (08:41)
[2019-08-29] MEDS: TYLENOL PO PRN (14:52)
--- NOTE | 2019-08-29 15:10 | PULMONOLOGY CONSULTATION ---
DATE: 08/29/2019 REQUESTING PROVIDER: Dr. Holly Canales. REASON FOR CONSULTATION: Chronic respiratory failure. HISTORY OF PRESENT ILLNESS: This is a 49-year-old female with a medical history of obstructive sleep apnea, morbid obesity, Pickwickian syndrome, COPD, diastolic congestive heart failure, hypertension, gastroesophageal reflux disease, diabetes mellitus type 2, hyperlipidemia, hiatal hernia and anxiety. She presented to the ER on 08/27/2019 with worsening shortness of breath for 1 week. Initial workup in the ER revealed acute on chronic hypoxic, hypercapnic respiratory failure and congestive heart failure exacerbation. She has been on diuretic with Lasix 40 mg daily since admission and bronchodilators q.6 hours scheduled. The patient currently is sitting on the bedside commode with no acute distress noted. She is on nasal cannula at 4 L. She reports shortness of breath with activity and dry cough but no fever, chill, chest pain, palpitation, bowel habit change, or urination discomfort. She does have pedal edema. She also has chronic dyspnea that she cannot tolerate lying flat. PAST MEDICAL HISTORY: 1. Obstructive sleep apnea with home BiPAP therapy. 2. Morbid obesity, current BMI 85.73. 3. Pickwickian syndrome. 4. COPD on DuoNeb, Proventil and Symbicort at home. 5. Congestive heart failure, diastolic. 6. Hypertension. 7. Gastroesophageal reflux disease. 8. Diabetes. 9. Hyperlipidemia. 10. Hiatal hernia. 11. Anxiety. 12. Chronic hypoxic, hypercapnic respiratory failure, on continuous oxygen at home. PAST SURGICAL HISTORY: None. SOCIAL HISTORY: The patient used to chew tobacco and quit 11 years ago. She does not smoke. She drinks alcohol occasionally. She lives at home with her family. FAMILY HISTORY: Positive for hypertension, diabetes, coronary artery disease. ALLERGIES: Amoxicillin. REVIEW OF SYSTEMS: A 10-point review of systems was conducted and the pertinent is listed within the HPI, otherwise noncontributory. PHYSICAL EXAMINATION: Vital Signs: Temperature 97.9 degrees, blood pressure 116/65, pulse 86, respiratory rate 20, oxygen saturation 96% on nasal cannula at 3 L. General: Morbidly obese. Sitting on the bedside commode with no acute distress noted. HEENT: Atraumatic, normocephalic. Trachea midline. Mucosa pink and moist. Pupils: Equal, round, reactive to light. Respiratory: Even and unlabored. Symmetrical excursion. Auscultation revealed diminished breathing sounds bilaterally. Cardiovascular: Regular rate and rhythm with S1, S2 appreciated. Gastrointestinal: Soft, obese, nontender. Normoactive bowel sounds in all 4 quadrants. Extremities: Bilateral lower extremity pitting edema 2 to 3+. No cyanosis. No clubbing. Dorsalis pedis 2+ bilaterally. Neurologic: Alert and oriented x3. Speech fluent. Follows commands. LABORATORY DATA: White blood cell 5.67, hemoglobin 12.2, hematocrit 41.8, platelet 264,000. Sodium 139, potassium 4.1, chloride 97, carbon dioxide 40, BUN 18, creatinine 0.7, glucose 105. ABG, pH 7.40, pCO2 of 56, PO2 of 50, HC03 of 31.0, base excess 8.1, oxyhemoglobin 86.0 on the BiPAP with FiO2 34% and pressure of 14/8. IMAGING DATA: Chest x-ray this morning shows cardiomegaly with pulmonary edema without interval improvement. ASSESSMENT: This is a 49-year-old female with a medical history of obstructive sleep apnea, morbid obesity, pickwickian syndrome, chronic obstructive pulmonary disease, diastolic congestive heart failure, hypertension, gastroesophageal reflux disease, diabetes, hyperlipidemia, hiatal hernia, anxiety, and chronic hypoxic, hypercapnic respiratory failure. She has been admitted since 08/27/2019 with acute on chronic hypoxic, hypercapnic respiratory failure secondary to acute congestive heart failure with pulmonary edema and elevated proBNP. 1. Acute hypoxic respiratory failure on chronic hypoxic respiratory failure. 2. Chronic hypercapnic respiratory failure. 3. Pulmonary edema. 4. Congestive heart failure exacerbation. 5. Morbid obesity with obstructive sleep apnea and pickwickian syndrome. 6. Chronic obstructive pulmonary disease. No acute exacerbation noted. PLAN: 1. Continue supplemental oxygen as needed and the BiPAP at bedtime. 2. We added Levaquin. 3. We ordered influenza screening. 4. Cardiology consultation ordered. 5. Continue diuretic, bronchodilators. 6. Deep venous thrombosis prophylaxis with heparin shot. 7. We will follow up with ABG, CBC, BMP, blood culture, and chest x-ray. 8. Further recommendations pending hospital course. Thank you for the courtesy of this consult. Dr. Purvis did the evaluation, examination, management and orders. FREDY dictated dictation for Dr. Purvis according to his direction. Dictated by FREDY Lake for Elisha Purvis MD cc: FREDY Lake MD [facility]
--- NOTE | 2019-08-29 16:41 | ECHO REPORT ---
ORDER DATE: 08/29/2019 INTERPRETING PHYSICIAN: Dr. Tomy Morin ECHOCARDIOGRAPHIC MEASUREMENTS: 1. Interventricular septum 0.9. 2. Left ventricular posterior wall 0.9. 3. Diastolic diameter 5.5. 4. Left atrium 3.9. 5. Aorta 3.2. SUMMARY OF THE 2-DIMENSIONAL IMAGIN. Aortic valve leaflets were trileaflet. 2. Pulmonic valve was normal. There is trace pulmonary regurgitation. 3. Technically suboptimal study. Poor acoustic window. There is mild mitral regurgitation. 4. Peak velocity across the tricuspid valve was 2 meters per second. There is mild tricuspid regurgitation. 5. Peak velocity across the aortic valve less than 2 meters per second. There is no aortic stenosis. There is trace aortic regurgitation. 6. Optison was used to assess left ventricular systolic function. Normal left ventricular cavity size. Estimated ejection fraction of 60% to 65%. 7. There is no pericardial effusion or obvious intracardiac mass or thrombus seen. cc: MD Holly Viera MD
--- NOTE | 2019-08-29 18:53 | PROGRESS NOTE ---
DATE: 08/29/2019 SUBJECTIVE: The patient is sitting up in bed. She states that her shortness of breath has improved and she has been urinating a lot more lately. OBJECTIVE: Vital Signs: Temperature 98.3 degrees, blood pressure 135/72, heart rate 89, respirations 20, O2 saturations 94% on 4 L nasal cannula. Intake 420, output 2.5 L. General: This is a morbidly obese female sitting up in bed in no acute distress. Heart: S1, S2 normal. Regular rate and rhythm. Lungs: Equal air entry bilaterally. No wheezing, no rales, no rhonchi, no crackles. Abdomen: Positive bowel sounds. Soft, obese, nontender, nondistended. Extremities: 2+ edema in the lower extremities. Neurologic: The patient is alert and oriented x3. LABS: White blood cell count 5.6, hemoglobin 12, hematocrit 41, platelets 264,000. ABG pH of 7.4, pCO2 56, PO2 50, bicarb 31, sodium 139, potassium 4.1, chloride 97, CO2 30, BUN 18, creatinine 0.7, glucose 105. ASSESSMENT AND PLAN: 1. Acute on chronic hypoxemic respiratory failure. Likely secondary to heart failure exacerbation. Continue the current treatment regimen. 2. Acute on chronic diastolic congestive heart failure exacerbation. Continue with diuretic therapy. We will consult with the body and frame technician for further treatment recommendations. 3. Obstructive sleep apnea. The patient has been advised to be compliant with using her CPAP at night. 4. Diabetes mellitus type 2. Continue on the current insulin regimen. 5. Morbid obesity. The patient has been counseled about weight loss and proper diet. 6. Hypertension. Continue on the current antihypertensive regimen. 7. Deep vein thrombosis prophylaxis. Continue on heparin. cc: Holly Canales MD
[2019-08-30] MEDS: HEPARIN SUBQ SCH ×3 (00:30→16:50)
[2019-08-30] MEDS: DUONEB (A & A) INH SCH ×4 (03:42→22:15)
[2019-08-30 05:09] LABS: ALLEN TEST YES; BE 8.8 mmoll (-3.0-3.0); BLOOD TYPE ARTERIAL; HCO3-(ACT) 31.6 mmoll (20.0-26.0); METHB 0.2 % (0.0-1.5); O2(CT) 18.2 mL/dL (15.0-23.0); O2HB 92.2 % (95.0-99.0); PO2(98.6) 68 mmHg (60-100); SAMPLE BLOOD; SAO2 93.7 % (95.0-100.0); pH(98.6) 7.41 (7.35-7.45)
[2019-08-30 05:11] LABS: MODALITY CANNULA; PCO2(98.6) 56 mmHg (35-45)
[2019-08-30 07:14] LABS: HEMATOCRIT 42.8 % (37.0-47.0); HEMOGLOBIN 13.1 g/dL (12.0-16.0); MCH 27.8 PG (27-31); MCHC 30.6 g/dL (33-37); MCV 90.9 FL (81-99); MPV 11.2 FL (7.4-10.4); RBC 4.71 XMIL (4.2-5.4); RDW 16.5 % (11.5-14.5); WBC 5.06 X1000 (4.8-10.8)
[2019-08-30 07:51] LABS: AGAP 12; BUN 22 mg/dL (8-22); CALCIUM 9.8 mg/dL (8.8-10.2); CHLORIDE 94 mmol/L (98-107); COSMO 283; CREATININE 0.8 mg/dL (0.5-0.9); ESTIMATED GFR > 60; GLUCOSE 104 mg/dL (70-104); POTASSIUM 4.3 mmol/L (3.5-5.1); SODIUM 140 mmol/L (136-145); TCO2 34 mmol/L (25-35)
[2019-08-30] MEDS ORDERED: DUONEB (A & A) ONE (08:00)
[2019-08-30 08:12] LABS: HEMOGLOBIN A1C 5.6 % (4.8-6.0)
[2019-08-30] MEDS: LASIX IV SCH (08:12)
[2019-08-30] MEDS: ASPIRIN PO SCH (08:13)
[2019-08-30] MEDS: LEVAQUIN 500 MG/D5W 500 MG/100 ML IVPB IV SCH (08:13)
[2019-08-30] MEDS: SYMBICORT 160/4.5 MICROGM INHALER INH SCH ×2 (08:34→22:15)
[2019-08-30] MEDS ORDERED: COZAAR PO SCH (09:00)
--- NOTE | 2019-08-30 12:08 | CARDIOLOGY CONSULTATION ---
DATE: 08/30/2019 CONSULTATION REQUESTED BY: Hospitalist Service and Dr. Purvis. REASON FOR CONSULTATION: Patient with edema, congestive heart failure. CHIEF COMPLAINT: Shortness of breath, swelling. HISTORY: Ms. Sherwood is a 49-year-old black female, who presented to the hospital for admission on 08/27/2019. The patient stated that she had been noticing increasing dyspnea with minimal effort to orthopnea associated with progressive swelling of lower extremities and seemingly noticeable weight gain. Upon presentation to the ER, they did a chest x-ray that shows cardiomegaly with possible mild vascular congestion. Blood work reveals a proBNP level of 775 mcg/mL which is about 3 to 4 times baseline. Chemistry panel was normal. Troponin levels were negative. EKG showed sinus rhythm without any ischemic ST-T changes. There was no arrhythmia or ischemic ST changes or pathological Q-waves. They have done an echocardiogram on August 28 that shows normal ejection fraction of 60 to 65 percent with normal valvular function. The patient is more comfortable after 48 hours with medical therapy and diuretics. PAST MEDICAL HISTORY: Significant for obstructive sleep apnea. She has been compliant with the regimen. She has a CPAP mask at her bedside. She has hypertension. The patient has morbid obesity. Her reported body mass index at this time is 84.4, weight 476 pounds. SURGICAL HISTORY: Negative. SOCIAL HISTORY: The patient lives with her son and [id number]. She has 2 children. She is on disability. Not a smoker or drinker. FAMILY HISTORY: Mother had coronary heart disease. HOME MEDICATIONS: At the time of this admission included amlodipine 10 mg daily, Albuterol 2 puffs every 4 hours, furosemide 40 mg daily, losartan 25 mg daily, metformin 500 daily, potassium chloride 10 mEq b.i.d. Albuterol inhaler and DuoNeb. ALLERGIES: Penicillin. REVIEW OF SYSTEMS: Other than her chronic issues with weight gain, it is really noncontributory. She has real difficulty losing weight. We had seen her in consultation briefly back in April of 2017 for almost similar reasons, and since that time she really has not been able to lose weight. PHYSICAL EXAMINATION: Vital signs: Blood pressure is 138/71, pulse 82, respirations 20, temperature 97.9 degrees. General: She is awake, alert, in no distress. HEENT: I cannot really see the jugular veins. Chest: Clear to auscultation and percussion. Heart: Sounds are regular and rhythmic. I do not hear a gallop or murmur. Abdomen: Obese, nontender. Extremities: Showed trace to 1+ brawny edema. Neurologic exam: Nonfocal. Moves 4 extremities. BLOOD WORK: Sodium is 140, potassium 4.3, BUN 22, creatinine 0.8. A pH is 7.4, pCO2 56, PO2 is 68. White cell count 5060, hemoglobin 13.1, hematocrit 42.8%. IMPRESSION: 1. Patient who presents with increasing dyspnea, elevated pro BNP, abnormal chest x-ray. Noticeably on the chest x-ray there is significant cardiomegaly. The cardiac silhouette is markedly enlarged. 2. Her left ventricular ejection fraction is preserved.Thus, patient has Diastolic Heart failure. probably chronic with some acute component. 3. Chronic respiratory failure with CO2 retention/pickwickian syndrome. 4. Obstructive sleep apnea on CPAP therapy. 5. Hypertension. RECOMMENDATION: At this time, we will make some adjustments to her medication. We will increase her vasodilatory regimen at spironolactone. I would strongly recommend to this patient to pursue consultation with the Bariatric Surgical Service at [facility]. Apparently Dr. Mcqueen had discussed with her about being referred; however, due to some financial issues, she had trouble getting there. The patient really needs to lose 130 to 140 pounds, and that more than likely will result in significant improvement of her symptoms and normalization of her cardiac status. At this point in time, there is no value in requesting a stress test since it is not going to effectively result in any significant change to her therapy. We will arrange for followup at the office, and thank you for asking us to participate in her evaluation. cc: Bala Delgado MD [facility]
[2019-08-30] MEDS: ALDACTONE PO SCH (12:55)
--- NOTE | 2019-08-30 16:38 | PROGRESS NOTE ---
DATE: 08/30/2019 SUBJECTIVE: The patient is sitting up in bed. She states that she feels a little bit better today. She states that she is less short of breath and the swelling in her legs has gone down significantly. OBJECTIVE: Vital Signs: Temperature 98 degrees, blood pressure 133/57, heart rate 83, respirations 18, O2 saturations 100% on 4 L nasal cannula. Intake 1.1 L. Output 2.5 mL. General: This is a morbidly obese female sitting up in bed in no acute distress. Heart: S1, S2 normal. Regular rate and rhythm. Lungs: Clear to auscultation bilaterally. Abdomen: Positive bowel sounds. Soft, obese, nontender, nondistended. Extremities: Show 1+ edema bilaterally. Neurologic: The patient is alert and oriented x3. LABS: White blood cell count 5, hemoglobin 13, hematocrit 42, platelets 237,000. ABG - pH of 7.41, pCO2 56, PO2 68, bicarb 31. Sodium 140, potassium 4.3, chloride 94, CO2 34, BUN 22, creatinine 0.8, glucose 104. ASSESSMENT AND PLAN: 1. Chronic hypoxemic and hypercapnic respiratory failure. Multifactorial. 2. Acute on chronic diastolic congestive heart failure exacerbation. The patient's cardiac regimen has been adjusted by the exceptional student education teacher. We will continue to monitor closely. 3. Obstructive sleep apnea. Continue with CPAP at night. 4. Morbid obesity. The patient has been advised to follow up with the bariatric surgeon at [facility] as scheduled by her primary care physician. 5. Hypertension. Continue on the current antihypertensive regimen. 6. Deep vein thrombosis prophylaxis. Continue on heparin. cc: Holly Canales MD
--- NOTE | 2019-08-30 17:03 | PROVIDER PROGRESS NOTE ---
Progress Note Dr. Purvis Progress Note/Pulmonary and or critical care Subjective: The patient is sitting at the edge of the bed with no acute distress noted. She reports a fall during this hospital stay which caused her worsening SOB in last several days. She states she is feeling better today. Objective: Vital Signs: T 97.9, BP 138/71, IA 80, RR 20, and SaO2 100% on NC 4L. Physical Examination: General: Morbidly obese. Sitting at the edge of the bed with no acute distress noted. HEENT: Normocephalic. Trachea midline. Mucosa pink and moist. PERRL. Chest: Even and unlabored. No increased work of breathing. Symmetrical excursion. Diminished breathing sounds bilaterally. CVS: Regular rate and rhythm with S1 and S2 appreciated. Abdomen: Normoactive bowel sounds present. Soft. Nontender. Protuberant. Extremities: BLE pitting edema 1+. No cyanosis. No clubbing. Neuro: A/O x3. Speech fluent. Follow commands. Labs and Radiology: Laboratory Results 08/29/19 08/29/19 08/30/19 16:16 20:07 04:59 WBC RBC Hgb Hct MCV MCH MCHC RDW Std Deviation Plt Count MPV Specimen Type ARTERIAL Sample Site L RADIAL pH 7.41 pCO2 56 H* pO2 68 HCO3 31.6 H Base Excess 8.8 H Oxyhemoglobin 92.2 L ABG O2 Sat (Calculated) 18.2 ABG O2 Saturation 93.7 L ABG Carboxyhemoglobin 1.40 ABG Methemoglobin 0.2 Erik Test YES A-a O2 Difference 119.0 Total Hemoglobin 14.0 Lactate 1.00 Liter Flow 4.0 Blood Gas Modality CANNULA FiO2 % 36.0 Sodium Potassium Chloride Carbon Dioxide Anion Gap BUN Creatinine Estimated GFR/1.73 m2 BUN/Creatinine Ratio Glucose POC Glucose 93 124 H Estimat Average Glucose Hemoglobin A1c Calculated Osmolality Calcium 08/30/19 08/30/19 08/30/19 06:30 06:40 06:40 WBC 5.06 RBC 4.71 Hgb 13.1 Hct 42.8 MCV 90.9 MCH 27.8 MCHC 30.6 L RDW Std Deviation 16.5 H Plt Count 237 MPV 11.2 H Specimen Type Sample Site pH pCO2 pO2 HCO3 Base Excess Oxyhemoglobin ABG O2 Sat (Calculated) ABG O2 Saturation ABG Carboxyhemoglobin ABG Methemoglobin Erik Test A-a O2 Difference Total Hemoglobin Lactate Liter Flow Blood Gas Modality FiO2 % Sodium 140 Potassium 4.3 Chloride 94 L Carbon Dioxide 34 Anion Gap 12 BUN 22 Creatinine 0.8 Estimated GFR/1.73 m2 > 60 BUN/Creatinine Ratio 28 Glucose 104 POC Glucose 94 Estimat Average Glucose Hemoglobin A1c Calculated Osmolality 283 Calcium 9.8 08/30/19 08/30/19 08/30/19 06:40 11:58 16:24 WBC RBC Hgb Hct MCV MCH MCHC RDW Std Deviation Plt Count MPV Specimen Type Sample Site pH pCO2 pO2 HCO3 Base Excess Oxyhemoglobin ABG O2 Sat (Calculated) ABG O2 Saturation ABG Carboxyhemoglobin ABG Methemoglobin Erik Test A-a O2 Difference Total Hemoglobin Lactate Liter Flow Blood Gas Modality FiO2 % Sodium Potassium Chloride Carbon Dioxide Anion Gap BUN Creatinine Estimated GFR/1.73 m2 BUN/Creatinine Ratio Glucose POC Glucose 112 H 106 H Estimat Average Glucose 114 Hemoglobin A1c 5.6 Calculated Osmolality Calcium Assessment: Acute on chronic hypoxemic respiratory failure. Compensated this morning. Chronic hypercapnic respiratory failure. Stable. Pulmonary edema. Congestive heart failure exacerbation. Morbid obesity with STONEY and Pickwickian syndrome COPD. No acute exacerbation noted. Plan: Cycling NC and BiPAP. We titrated oxygen and BiPAP settings to patients needs per clinical protocol. Continue Levaquin, diuretic, and bronchodilators. DVT prophylaxis with heparin. Weight loss recommended.
[2019-08-30] MEDS: COZAAR PO SCH (20:52)
[2019-08-31] MEDS: HEPARIN SUBQ SCH ×3 (00:55→15:52)
[2019-08-31] MEDS: DUONEB (A & A) INH SCH ×4 (03:29→22:54)
[2019-08-31] MEDS: SYMBICORT 160/4.5 MICROGM INHALER INH SCH ×2 (08:16→22:54)
[2019-08-31 08:26] LABS: AGAP 12; BUN 25 mg/dL (8-22); CHLORIDE 91 mmol/L (98-107); COSMO 273; CREATININE 0.8 mg/dL (0.5-0.9); ESTIMATED GFR > 60; GLUCOSE 106 mg/dL (70-104); POTASSIUM 4.3 mmol/L (3.5-5.1); SODIUM 134 mmol/L (136-145); TCO2 31 mmol/L (25-35)
[2019-08-31] MEDS: LASIX IV SCH (08:49)
[2019-08-31] MEDS: COZAAR PO SCH ×2 (08:49→21:21)
[2019-08-31] MEDS: LEVAQUIN 500 MG/D5W 500 MG/100 ML IVPB IV SCH (08:49)
[2019-08-31] MEDS: ALDACTONE PO SCH (08:49)
[2019-08-31] MEDS: ASPIRIN PO SCH (08:49)
--- NOTE | 2019-08-31 17:07 | PROGRESS NOTE ---
DATE: 08/31/2019 SUBJECTIVE: The patient is resting comfortably. She states that she feels a lot better. The swelling in her legs has improved. OBJECTIVE: Vital Signs: Temperature 98.2 degrees, blood pressure 115/61, heart rate 83, respirations 18, and O2 saturation is 100% on 5 L nasal cannula. Intake is 500. General: This is a morbidly obese female lying in bed in no acute distress. Heart: S1, S2 normal. Regular rate and rhythm. Lungs: Equal air entry bilaterally. No wheezing. No rales. Abdomen: Positive bowel sounds. Soft, obese, nontender, and nondistended. Extremities: 1+ edema bilaterally. Neurologic: The patient is alert and oriented x3. LABORATORY: Sodium 134, potassium 4.3, BUN 25, and creatinine 0.8. ASSESSMENT AND PLAN: 1. Chronic hypoxemic and hypercapnic respiratory failure. 2. Acute on chronic diastolic congestive heart failure exacerbation. Continue on the current medications. The patient is slowly improving. 3. Morbid obesity. The patient has been advised to follow up with the bariatric surgeon at [facility]. 4. Obstructive sleep apnea. Continue with CPAP at night. 5. Hypertension. Controlled. 6. Deep vein thrombosis prophylaxis. Continue on heparin. cc: Holly Canales MD
--- NOTE | 2019-08-31 17:23 | PROVIDER PROGRESS NOTE ---
Progress Note Dr. Purvis Progress Note/Pulmonary and or critical care Subjective: The patient is lying in bed with no acute distress noted. She states she is feeling better with improving SOB. Patient reports her BiPAP mask is a little bit too big for her and the BiPAP apparently was not set up properly in last two nights which caused desaturation and her flow rate of supplemental oxygen thus has been increased. Objective: Vital Signs: T 98.4, BP 113/55, AK 80, RR 20, and SaO2 97% on NC 5L. Physical Examination: General: Morbidly obese. Sitting at the edge of the bed with no acute distress noted. HEENT: Normocephalic. Trachea midline. Mucosa pink and moist. PERRL. Chest: Even and unlabored. No increased work of breathing. Symmetrical excursion. Diminished breathing sounds bilaterally. CVS: Regular rate and rhythm with S1 and S2 appreciated. Abdomen: Normoactive bowel sounds present. Soft. Nontender. Protuberant. Extremities: BLE pitting edema 1+. No cyanosis. No clubbing. Neuro: A/O x3. Speech fluent. Follow commands. Labs and Radiology: Laboratory Results 08/30/19 08/31/19 08/31/19 21:14 06:38 07:10 Sodium 134 L Potassium 4.3 Chloride 91 L Carbon Dioxide 31 Anion Gap 12 BUN 25 H Creatinine 0.8 Estimated GFR/1.73 m2 > 60 BUN/Creatinine Ratio 31 Glucose 106 H POC Glucose 108 H 98 Calculated Osmolality 273 Calcium 10.0 08/31/19 12:04 Sodium Potassium Chloride Carbon Dioxide Anion Gap BUN Creatinine Estimated GFR/1.73 m2 BUN/Creatinine Ratio Glucose POC Glucose 99 Calculated Osmolality Calcium Assessment: Acute on chronic hypoxemic respiratory failure. Stable. Chronic hypercapnic respiratory failure. Stable. Pulmonary edema. Congestive heart failure exacerbation. Morbid obesity with STONEY and Pickwickian syndrome COPD. No acute exacerbation noted. Plan: Cycling NC and BiPAP. We titrated oxygen and BiPAP settings to patients needs per clinical protocol. Weaning oxygen as tolerated. Continue Levaquin, diuretic, and bronchodilators. DVT prophylaxis with heparin. Weight loss recommended.
[2019-08-31] MEDS: TYLENOL PO PRN (21:27)
[2019-09-01] MEDS: DUONEB (A & A) INH SCH ×4 (03:30→22:32)
[2019-09-01] MEDS: HEPARIN SUBQ SCH ×3 (06:00→21:04)
[2019-09-01 07:54] LABS: AGAP 12; BUN 23 mg/dL (8-22); CALCIUM 9.6 mg/dL (8.8-10.2); CHLORIDE 97 mmol/L (98-107); COSMO 280; CREATININE 0.7 mg/dL (0.5-0.9); ESTIMATED GFR > 60; GLUCOSE 103 mg/dL (70-104); POTASSIUM 4.2 mmol/L (3.5-5.1); SODIUM 138 mmol/L (136-145); TCO2 29 mmol/L (25-35)
[2019-09-01] MEDS: ALDACTONE PO SCH (09:58)
[2019-09-01] MEDS: COZAAR PO SCH ×2 (09:58→21:04)
[2019-09-01] MEDS: LEVAQUIN 500 MG/D5W 500 MG/100 ML IVPB IV SCH (09:58)
[2019-09-01] MEDS: ASPIRIN PO SCH (09:58)
[2019-09-01] MEDS: LASIX IV SCH ×2 (09:59→21:04)
[2019-09-01] MEDS ORDERED: PROTONIX PO ONE (10:50)
[2019-09-01] MEDS: SYMBICORT 160/4.5 MICROGM INHALER INH SCH ×2 (10:55→22:32)
--- NOTE | 2019-09-01 23:37 | PROVIDER PROGRESS NOTE ---
Progress Note Dr. Purvis Progress Note/Pulmonary and or critical care Subjective: The patient is sitting on the toilet. She is on NC 3L and tolerates well. She states she is feeling better. She denies SOB with activities. She apparently did not use BiPAP last night as she was afraid to get desaturated. Objective: Vital Signs: T 98.2, BP 121/70, MD 87, RR 16, and SaO2 94% on NC 3L. Physical Examination: General: Morbidly obese. Sitting at the edge of the bed with no acute distress noted. HEENT: Normocephalic. Trachea midline. Mucosa pink and moist. PERRL. Chest: Even and unlabored. No increased work of breathing. Symmetrical excursion. Diminished breathing sounds bilaterally. CVS: Regular rate and rhythm with S1 and S2 appreciated. Abdomen: Normoactive bowel sounds present. Soft. Nontender. Protuberant. Extremities: BLE trace edema. No cyanosis. No clubbing. Neuro: A/O x3. Speech fluent. Follow commands. Labs and Radiology: Laboratory Results 09/01/19 09/01/19 09/01/19 06:12 06:28 10:34 Sodium 138 Potassium 4.2 Chloride 97 L Carbon Dioxide 29 Anion Gap 12 BUN 23 H Creatinine 0.7 Estimated GFR/1.73 m2 > 60 BUN/Creatinine Ratio 33 Glucose 103 POC Glucose 109 H 100 Calculated Osmolality 280 Calcium 9.6 09/01/19 09/01/19 15:29 20:58 Sodium Potassium Chloride Carbon Dioxide Anion Gap BUN Creatinine Estimated GFR/1.73 m2 BUN/Creatinine Ratio Glucose POC Glucose 90 110 H Calculated Osmolality Calcium Assessment: Acute on chronic hypoxemic respiratory failure. Improving. Chronic hypercapnic respiratory failure. Stable. Pulmonary edema. Congestive heart failure exacerbation. Morbid obesity with STONEY and Pickwickian syndrome COPD. No acute exacerbation noted. Plan: Cycling NC and BiPAP. We titrated oxygen and BiPAP settings to patients needs per clinical protocol. Weaning oxygen as tolerated. Continue Levaquin, diuretic, and bronchodilators. DVT prophylaxis with heparin. Weight loss recommended. Follow up ABG tomorrow.
[2019-09-02] MEDS: DUONEB (A & A) INH SCH ×4 (03:54→22:35)
[2019-09-02 05:34] LABS: ALLEN TEST YES; BE 4.3 mmoll (-3.0-3.0); BLOOD TYPE ARTERIAL; HCO3-(ACT) 28.2 mmoll (20.0-26.0); METHB 0.5 % (0.0-1.5); O2(CT) 19.9 mL/dL (15.0-23.0); O2HB 94.7 % (95.0-99.0); PO2(98.6) 90 mmHg (60-100); SAMPLE BLOOD; SAO2 96.6 % (95.0-100.0); THB 14.9 g/dL (11.5-17.4); pH(98.6) 7.38 (7.35-7.45)
[2019-09-02 05:37] LABS: MODALITY CANNULA; PCO2(98.6) 52 mmHg (35-45)
[2019-09-02] MEDS: PROTONIX PO SCH (06:03)
[2019-09-02] MEDS: HEPARIN SUBQ SCH ×4 (06:04→22:13)
--- NOTE | 2019-09-02 07:10 | Diag Imaging Result Doc PS360 ---
EXAM: CHEST-1 VIEW 09/02/2019 HISTORY: pulmonary edema TECHNIQUE: AP portable at 0607 COMMENT: The heart size has diminished since the previous study of 08/29/2019. The lungs appear to be clear. IMPRESSION: Improved cardiomegaly and pulmonary edema. Electronically signed by Storm Cantu 09/02/2019 7:08 AM
[2019-09-02 07:23] LABS: HEMATOCRIT 41.5 % (37.0-47.0); HEMOGLOBIN 12.9 g/dL (12.0-16.0); MCHC 31.1 g/dL (33-37); MCV 90.2 FL (81-99); MPV 11.3 FL (7.4-10.4); RBC 4.6 XMIL (4.2-5.4); RDW 16.1 % (11.5-14.5); WBC 5.95 X1000 (4.8-10.8)
[2019-09-02 07:34] LABS: AGAP 10; BUN 24 mg/dL (8-22); CALCIUM 9.3 mg/dL (8.8-10.2); CHLORIDE 94 mmol/L (98-107); COSMO 276; CREATININE 0.8 mg/dL (0.5-0.9); ESTIMATED GFR > 60; GLUCOSE 107 mg/dL (70-104); MAGNESIUM 2.1 mg/dL (1.5-2.7); PHOSPHORUS 3.7 mg/dL (2.7-4.5); POTASSIUM 4.2 mmol/L (3.5-5.1); SODIUM 136 mmol/L (136-145); TCO2 32 mmol/L (25-35)
[2019-09-02] MEDS: ALDACTONE PO SCH (09:30)
[2019-09-02] MEDS: COZAAR PO SCH ×2 (09:30→20:22)
[2019-09-02] MEDS: LEVAQUIN 500 MG/D5W 500 MG/100 ML IVPB IV SCH (09:30)
[2019-09-02] MEDS: LASIX IV SCH ×2 (09:31→20:22)
[2019-09-02] MEDS: ASPIRIN PO SCH (09:31)
[2019-09-02] MEDS: SYMBICORT 160/4.5 MICROGM INHALER INH SCH ×2 (10:59→22:35)
[2019-09-02] MEDS: TYLENOL PO PRN (13:24)
--- NOTE | 2019-09-02 15:11 | PROGRESS NOTE ---
DATE: 09/02/2019 SUBJECTIVE: The patient is sitting up. She states that she feels much better today. The swelling in her legs is going down. No acute events noted overnight. She is having regular bowel movements. OBJECTIVE: Vital Signs: Temperature 98.2 degrees, blood pressure 116/70, heart rate 92, respirations 23, O2 saturation 94% on 3 L nasal cannula. General: This is a morbidly obese female sitting up in bed in no acute distress. Heart: S1, S2 normal. Regular rate and rhythm. Lungs: Equal air entry bilaterally. No wheezing. No rales. Abdomen: Positive Bowel sounds. Soft, obese, nontender, nondistended. Extremities: 1+ edema bilaterally. Neurologic: The patient is alert and oriented x3. LABS: White blood cell count 5.9, hemoglobin 12, hematocrit 41, platelets 246,000. Sodium 136, potassium 4.2, chloride 94, CO2 32, BUN 24, creatinine 0.8 glucose 107. Chest x-ray shows improved cardiomegaly and pulmonary edema. ASSESSMENT AND PLAN: 1. Chronic hypoxemic and hypercapnic respiratory failure, improved. 2. Acute on chronic diastolic congestive heart failure exacerbation. The patient is slowly improving. Continue on the current cardiac regimen. 3. Bronchitis. The patient is on antibiotic therapy. 4. Morbid obesity. The patient has been advised to follow up with the bariatric surgeon at [facility]. 5. Obstructive sleep apnea. Continue with CPAP at night. 6. Hypertension. Controlled. 7. Deep vein thrombosis prophylaxis. Continue on heparin. cc: Holly Canales MD
--- NOTE | 2019-09-02 18:09 | PROVIDER PROGRESS NOTE ---
Progress Note Dr. Purvis Progress Note/Pulmonary and or critical care Subjective: The patient is sitting in bed with NC 2L. She states she is feeling better. She did not use BiPAP last night because she fell asleep before staff put it on. She asks for a referral to the bariatric surgeon at [facility]. Objective: Vital Signs: T 98.2, BP 116/70, [place] 92, RR 23, and SaO2 94% on NC 2L. Physical Examination: General: Morbidly obese. Sitting at the edge of the bed with no acute distress noted. HEENT: Normocephalic. Trachea midline. Mucosa pink and moist. PERRL. Chest: Even and unlabored. No increased work of breathing. Symmetrical excursion. Diminished breathing sounds bilaterally. CVS: Regular rate and rhythm with S1 and S2 appreciated. Abdomen: Normoactive bowel sounds present. Soft. Nontender. Protuberant. Extremities: BLE trace edema. No cyanosis. No clubbing. Neuro: A/O x3. Speech fluent. Follow commands. Labs and Radiology: Laboratory Results 09/01/19 09/01/19 09/02/19 15:29 20:58 05:24 WBC RBC Hgb Hct MCV MCH MCHC RDW Std Deviation Plt Count MPV Specimen Type ARTERIAL Sample Site R RADIAL pH 7.38 pCO2 52 H* pO2 90 HCO3 28.2 H Base Excess 4.3 H Oxyhemoglobin 94.7 L ABG O2 Sat (Calculated) 19.9 ABG O2 Saturation 96.6 ABG Carboxyhemoglobin 1.40 ABG Methemoglobin 0.5 Erik Test YES A-a O2 Difference 102.0 Total Hemoglobin 14.9 Lactate 2.00 Liter Flow 4.0 Blood Gas Modality CANNULA FiO2 % 36.0 Sodium Potassium Chloride Carbon Dioxide Anion Gap BUN Creatinine Estimated GFR/1.73 m2 BUN/Creatinine Ratio Glucose POC Glucose 90 110 H Calculated Osmolality Calcium Phosphorus Magnesium 09/02/19 09/02/19 09/02/19 06:13 06:54 06:54 WBC 5.95 RBC 4.60 Hgb 12.9 Hct 41.5 MCV 90.2 MCH 28.0 MCHC 31.1 L RDW Std Deviation 16.1 H Plt Count 246 MPV 11.3 H Specimen Type Sample Site pH pCO2 pO2 HCO3 Base Excess Oxyhemoglobin ABG O2 Sat (Calculated) ABG O2 Saturation ABG Carboxyhemoglobin ABG Methemoglobin Erik Test A-a O2 Difference Total Hemoglobin Lactate Liter Flow Blood Gas Modality FiO2 % Sodium 136 Potassium 4.2 Chloride 94 L Carbon Dioxide 32 Anion Gap 10 BUN 24 H Creatinine 0.8 Estimated GFR/1.73 m2 > 60 BUN/Creatinine Ratio 30 Glucose 107 H POC Glucose 98 Calculated Osmolality 276 Calcium 9.3 Phosphorus 3.7 Magnesium 2.1 09/02/19 11:40 WBC RBC Hgb Hct MCV MCH MCHC RDW Std Deviation Plt Count MPV Specimen Type Sample Site pH pCO2 pO2 HCO3 Base Excess Oxyhemoglobin ABG O2 Sat (Calculated) ABG O2 Saturation ABG Carboxyhemoglobin ABG Methemoglobin Erik Test A-a O2 Difference Total Hemoglobin Lactate Liter Flow Blood Gas Modality FiO2 % Sodium Potassium Chloride Carbon Dioxide Anion Gap BUN Creatinine Estimated GFR/1.73 m2 BUN/Creatinine Ratio Glucose POC Glucose 96 Calculated Osmolality Calcium Phosphorus Magnesium Assessment: Acute on chronic hypoxemic respiratory failure. Improved. Patient tolerates to NC 2L which is close to her baseline oxygen demand. Chronic hypercapnic respiratory failure. Stable. Pulmonary edema. CXR today shows improved cardiomegaly and pulmonary edema. Congestive heart failure exacerbation. Morbid obesity with STONEY and Pickwickian syndrome COPD. No acute exacerbation noted. Plan: Cycling NC and CPAP. We encourage patient to continue home CPAP therapy. Weaning oxygen as tolerated. Continue Levaquin, diuretic, and bronchodilators. DVT prophylaxis with heparin. Weight loss recommended.
[2019-09-03] MEDS: DUONEB (A & A) INH SCH ×4 (03:41→23:25)
[2019-09-03] MEDS: HEPARIN SUBQ SCH ×3 (05:42→21:48)
[2019-09-03] MEDS: PROTONIX PO SCH ×2 (05:42→06:08)
[2019-09-03 07:29] LABS: AGAP 10; BUN 25 mg/dL (8-22); CALCIUM 9.6 mg/dL (8.8-10.2); CHLORIDE 95 mmol/L (98-107); COSMO 281; CREATININE 0.9 mg/dL (0.5-0.9); ESTIMATED GFR > 60; GLUCOSE 109 mg/dL (70-104); POTASSIUM 4.1 mmol/L (3.5-5.1); SODIUM 138 mmol/L (136-145); TCO2 33 mmol/L (25-35)
[2019-09-03] MEDS: TYLENOL PO PRN ×2 (08:44→18:14)
[2019-09-03] MEDS: ALDACTONE PO SCH (08:44)
[2019-09-03] MEDS: LASIX IV SCH ×2 (08:44→21:47)
[2019-09-03] MEDS: ASPIRIN PO SCH (08:44)
[2019-09-03] MEDS: COZAAR PO SCH ×2 (08:44→21:48)
[2019-09-03] MEDS: LEVAQUIN 500 MG/D5W 500 MG/100 ML IVPB IV SCH (08:45)
[2019-09-03] MEDS: SYMBICORT 160/4.5 MICROGM INHALER INH SCH ×2 (10:35→20:00)
--- NOTE | 2019-09-03 18:07 | PROGRESS NOTE ---
DATE: 09/03/2019 SUBJECTIVE: The patient is sitting up in bed resting comfortably. She states that she feels good. No acute events noted overnight. The swelling in her legs has improved. OBJECTIVE: Vital Signs: Temperature 98.4 degrees, blood pressure 117/63, heart rate 77, respirations 20, O2 saturation 98% on 3 L nasal cannula. General: This is a morbidly obese female sitting up in bed in no acute distress. Heart: S1, S2 normal. Regular rate and rhythm. Lungs: Equal air entry bilaterally. No wheezing, no rales. Abdomen: Positive bowel sounds. Soft, obese, nontender, nondistended. Extremities: 1+ edema bilaterally. Neuro: The patient is alert and oriented x3. LABS: Reviewed. ASSESSMENT AND PLAN: 1. Chronic hypoxemic and hypercapnic respiratory failure. Stable. 2. Acute on chronic diastolic congestive heart failure exacerbation. Will likely transition the patient to oral Lasix tomorrow, continue on the current cardiac medications. 3. Bronchitis. Continue with antibiotic therapy. 4. Obstructive sleep apnea. Continue with CPAP at night. 5. Morbid obesity. The patient will need to follow up a bariatric surgeon at [facility] upon discharge. 6. Hypertension. Controlled. 7. Deep vein thrombosis prophylaxis. Continue on heparin. 8. Disposition. Will likely discharge the patient home tomorrow. cc: Holly Canales MD MTDD
--- NOTE | 2019-09-03 19:40 | PROVIDER PROGRESS NOTE ---
Progress Note Dr. Purvis Progress Note/Pulmonary and or critical care Subjective: The patient is lying in bed with NC 3L. her [id number] and two grandsons are at the bedside. She states she is feeling well. She apparently takes oxygen off at times. She did use CPAP last night. Objective: Vital Signs: T 98.6, BP 138/71, [place] 81, RR 21, and SaO2 100% on room air. Physical Examination: General: Morbidly obese. Sitting at the edge of the bed with no acute distress n oted. HEENT: Normocephalic. Trachea midline. Mucosa pink and moist. PERRL. Chest: Even and unlabored. No increased work of breathing. Symmetrical excursion. Diminished breathing sounds bilaterally. CVS: Regular rate and rhythm with S1 and S2 appreciated. Abdomen: Normoactive bowel sounds present. Soft. Nontender. Protuberant. Extremities: BLE trace edema. No cyanosis. No clubbing. Neuro: A/O x3. Speech fluent. Follow commands. Labs and Radiology: Laboratory Results 09/02/19 09/02/19 09/03/19 16:14 20:47 06:40 Sodium 138 Potassium 4.1 Chloride 95 L Carbon Dioxide 33 Anion Gap 10 BUN 25 H Creatinine 0.9 Estimated GFR/1.73 m2 > 60 BUN/Creatinine Ratio 28 Glucose 109 H POC Glucose 100 120 H Calculated Osmolality 281 Calcium 9.6 09/03/19 09/03/19 09/03/19 07:10 10:33 14:52 Sodium Potassium Chloride Carbon Dioxide Anion Gap BUN Creatinine Estimated GFR/1.73 m2 BUN/Creatinine Ratio Glucose POC Glucose 107 H 101 92 Calculated Osmolality Calcium Assessment: Acute on chronic hypoxemic respiratory failure. Improved. Chronic hypercapnic respiratory failure. Stable. Pulmonary edema. Congestive heart failure exacerbation. Improved. Morbid obesity with STONEY and Pickwickian syndrome COPD. No acute exacerbation noted. Plan: Supplemental oxygen as needed. Encourage to continue home CPAP therapy. Continue Levaquin, diuretic, and bronchodilators. DVT prophylaxis with heparin. Weight loss recommended. Discharge planning per Dr. Cohen
[2019-09-04] MEDS: TYLENOL PO PRN (03:11)
--- NOTE | 2019-09-04 04:14 | PROGRESS NOTE ---
DATE: 09/01/2019 SUBJECTIVE: The patient is sitting up in bed. She states that she feels much better. OBJECTIVE: Vital Signs: Temperature 98.5 degrees, blood pressure 131/80, heart rate 92, respirations 18, O2 saturation is 100% on 3 L nasal cannula. General: This is a morbidly obese female lying in bed in no acute distress. Heart: S1, S2, normal. Lungs: Equal air entry bilaterally. No wheezing. No rales. Abdomen: Positive bowel sounds. Soft, obese, nontender, and nondistended. Extremities: 2+ edema bilaterally. Neurologic: The patient is alert and oriented x3. LABORATORY STUDIES: Sodium 138, potassium 4.2, chloride 97, CO2 29, BUN 23, creatinine 0.7, glucose 103. ASSESSMENT AND PLAN: 1. Chronic hypoxemic and hypercapnic respiratory failure. Continue to treat the underlying heart failure. 2. Acute on chronic diastolic congestive heart failure exacerbation. We will increase the patient's diuretic dosage. Continue on the current cardiac medications. 3. Morbid obesity. The patient will follow up at [facility] with a bariatric surgeon. 4. Obstructive sleep apnea. Continue with CPAP at night. 5. Hypertension. Controlled. 6. Deep vein thrombosis prophylaxis. Continue on heparin. cc: Holly Canales MD MTDD
[2019-09-04] MEDS: DUONEB (A & A) INH SCH ×2 (04:15→10:07)
[2019-09-04] MEDS: HEPARIN SUBQ SCH (05:38)
[2019-09-04] MEDS: PROTONIX PO SCH ×2 (05:39→06:10)
[2019-09-04 07:20] LABS: AGAP 11; BUN 26 mg/dL (8-22); CALCIUM 9.4 mg/dL (8.8-10.2); CHLORIDE 97 mmol/L (98-107); COSMO 279; CREATININE 0.9 mg/dL (0.5-0.9); ESTIMATED GFR > 60; GLUCOSE 107 mg/dL (70-104); POTASSIUM 4.4 mmol/L (3.5-5.1); SODIUM 137 mmol/L (136-145); TCO2 29 mmol/L (25-35)
[2019-09-04] MEDS: ASPIRIN PO SCH (09:20)
[2019-09-04] MEDS: LEVAQUIN 500 MG/D5W 500 MG/100 ML IVPB IV SCH (09:20)
[2019-09-04] MEDS: COZAAR PO SCH (09:21)
[2019-09-04] MEDS: LASIX IV SCH (09:21)
[2019-09-04] MEDS: ALDACTONE PO SCH (09:21)
[2019-09-04] MEDS: SYMBICORT 160/4.5 MICROGM INHALER INH SCH (10:08)
[2019-09-04] MEDS ORDERED: FLU VACCINE IM ONE (12:07)
[2019-09-04 12:09] VITALS: BP 108/71
--- NOTE | 2019-09-04 15:08 | DISCHARGE SUMMARY ---
ADMISSION DATE: 08/27/2019 DISCHARGE DATE: 09/04/2019 FINAL DISCHARGE DIAGNOSES: 1. Chronic hypoxemic and hypercapnic respiratory failure. 2. Acute on chronic diastolic congestive heart failure exacerbation. 3. Acute pulmonary edema. 4. Morbid obesity with a body mass index of 83. 5. Obstructive sleep apnea. 6. Hypertension. 7. Diabetes mellitus type 2 CONSULTATIONS: 1. Cardiology consultation with Dr. Delgado. 2. Pulmonary consultation with Dr. Purvis. IMAGIN. Chest x-ray performed on 08/27/2019 which revealed mild vascular congestion and cardiomegaly. 2. Chest x-ray performed on 09/22/2019, which revealed improved pulmonary edema with clear lungs. 3. Echocardiogram which revealed an ejection fraction of 60 to 65 percent. HOSPITAL COURSE: Ms. Sherwood is a 49-year-old female with a history of diastolic congestive heart failure, morbid obesity, hypertension, and diabetes who presented to the ER with a chief complaint of shortness of breath and increased lower extremity edema. On admission, a chest x-ray was done that revealed pulmonary edema. The patient was admitted to the hospitalist service and Cardiology and Pulmonary Medicine, were consulted. The patient was started on IV diuretic therapy and adjustments were made to her heart failure medication. Slowly over the course of the hospitalization, the patient responded well to the diuretic therapy and her respiratory symptoms improved and also the swelling in her extremities improved as well. The patient was counseled extensively about proper diet and the importance of weight loss. The patient requested a referral to the [facility] weight loss [facility] and the patient now has an appointment with the [facility] weight loss Clinic scheduled for 09/26/2019. The patient was advised to keep her food drawn leading up to her appointment at the end of this month. On the day of discharge, the patient was noted to be back to her baseline level of function. The patient was cleared for discharge home on 09/04/2019. DISCHARGE MEDICATIONS: 1. Aspirin 81 mg p.o. daily. 2. Cozaar 50 mg oral twice a day. 3. Lasix 60 mg p.o. daily. 4. Aldactone 25 mg oral daily. 5. Metformin 500 mg oral daily. 6. Symbicort 2 puffs inhaled every 4 hours 12 hours. 7. Albuterol 3 mL inhaled every 4 hours p.r.n. DISCHARGE DIET: Low-sodium diet. ACTIVITY: As tolerated. FOLLOWUP INSTRUCTIONS: The patient is scheduled to follow up at the [facility] weight loss occurring on 09/26/2019 at 2:20 p.m. the patient will need to follow up with Dr. Delgado on 10/11/2019 at 1:30 p.m. The patient will need to follow up with Dr. Mcqueen on 09/12/2019 at 10:30 a.m. The patient will need to follow up with Dr. Purvis as scheduled by his clinic. cc: MD Holly Mix MD MTDD
--- NOTE | 2019-09-04 17:59 | PROVIDER PROGRESS NOTE ---
Progress Note Dr. Purvis Progress Note/Pulmonary and or critical care Subjective: The patient is sitting at the edge of the bed with NC 2L. She states she has no complaint at this time and she is ready to go home. Objective: Vital Signs: T 97.9, BP 121/59, [place] 90, RR 20, and SaO2 96% on NC 3L. Physical Examination: General: Morbidly obese. Sitting at the edge of the bed with no acute distress noted. HEENT: Normocephalic. Trachea midline. Mucosa pink and moist. PERRL. Chest: Even and unlabored. No increased work of breathing. Symmetrical excursion. Diminished breathing sounds bilaterally. CVS: Regular rate and rhythm with S1 and S2 appreciated. Abdomen: Normoactive bowel sounds present. Soft. Nontender. Protuberant. Extremities: BLE trace edema. No cyanosis. No clubbing. Neuro: A/O x3. Speech fluent. Follow commands. Labs and Radiology: Laboratory Results 09/03/19 09/04/19 09/04/19 21:11 06:19 06:43 Sodium 137 Potassium 4.4 Chloride 97 L Carbon Dioxide 29 Anion Gap 11 BUN 26 H Creatinine 0.9 Estimated GFR/1.73 m2 > 60 BUN/Creatinine Ratio 29 Glucose 107 H POC Glucose 97 101 Calculated Osmolality 279 Calcium 9.4 09/04/19 10:39 Sodium Potassium Chloride Carbon Dioxide Anion Gap BUN Creatinine Estimated GFR/1.73 m2 BUN/Creatinine Ratio Glucose POC Glucose 104 Calculated Osmolality Calcium Assessment: Acute on chronic hypoxemic respiratory failure. Improved. Chronic hypercapnic respiratory failure. Stable. Pulmonary edema. Improved. Congestive heart failure exacerbation. Improved. Morbid obesity with STONEY and Pickwickian syndrome COPD. No acute exacerbation noted. Plan: Supplemental oxygen as needed. Encourage to continue home CPAP therapy. Continue Levaquin, diuretic, and bronchodilators. DVT prophylaxis with heparin. Weight loss recommended. Discharge planning per Dr. Cohen
== END 2019-09-04 14:46 | disposition home or self-care (01) | DRG 291 ==
LOC: ED 14:40 → SUATTDRO 22:03 → 4N 22:03
PROVIDERS: ATTEND Internal Medicine